=== PATIENT | male | born 1955 | race Caucasian/White ===

== ENCOUNTER 2018-03-15 11:06 | Inpatient (IN) | payer MEDICARE ==
[2018-03-15] MEDS ORDERED: SODIUM CHLORIDE 0.9% 1,000 ML IV STA (11:38)
[2018-03-15 12:26] LABS: Appearance,Urine Clear (Clear); Basophils % (A) 0 %; Bilirubin,Urine Negative (Negative); Blood,Urine Negative (Negative); Color,Urine Light Yellow; Eosinophils # (A) 0.3 k/uL (0-0.7); Eosinophils % (A) 4 %; Glucose,Urine (UA) Negative (Negative); HCT 35.9 % (39.0-53.0); HGB 11.6 gm/dL (13.0-17.5); Ketones,Urine Negative (Negative); Leukocyte Esterase,Urine Negative (Negative); Lymphocytes # (A) 1.1 k/uL (1.0-4.8); Lymphocytes % (A) 14 %; MCH 29.3 pg (25.0-35.0); MCHC 32.4 g/dL (31.0-37.0); MCV 90.5 fL (80.0-100.0); Mean Platelet Volume 6.3; Monocytes # (A) 0.3 k/uL (0-1.0); Monocytes % (A) 3 %; Neutrophils # (A) 6.2 k/uL (1.3-7.7); Neutrophils % (A) 78 %; Nitrite,Urine Negative (Negative); PH, Urine 5.5 (5.0-8.0); Platelet Count 234 k/uL (150-450); Protein,Urine Negative (Negative); RBC 3.97 m/uL (4.30-5.90); RDW 15.2 % (11.5-15.5); Specific Gravity,Urine 1.003 (1.001-1.035); Urobilinogen,Urine <2.0 mg/dL (<2.0); WBC 7.9 k/uL (3.8-10.6)
[2018-03-15 12:35] LABS: ALT 26 U/L (21-72); AST 29 U/L (17-59); Albumin 3.7 g/dL (3.5-5.0); Alcohol <10 mg/dL; Alkaline Phosphatase 102 U/L (38-126); Anion Gap 9 mmol/L; Blood Urea Nitrogen 17 mg/dL (9-20); Calcium 9.3 mg/dL (8.4-10.2); Carbon Dioxide 24 mmol/L (22-30); Chloride 110 mmol/L (98-107); Glucose 75 mg/dL (74-99); Magnesium 2.1 mg/dL (1.6-2.3); Potassium 4.5 mmol/L (3.5-5.1); Sodium 143 mmol/L (137-145); Total Bilirubin 0.4 mg/dL (0.2-1.3); Total Protein 6.3 g/dL (6.3-8.2)
[2018-03-15 12:38] LABS: Prothrombin Time 10.1 sec (9.0-12.0)
--- NOTE | 2018-03-15 12:39 | ED ---
Psych HPI - General Chief Complaint: Psychiatric Symptoms Stated Complaint: EPS eval Time Seen by Provider: 03/15/18 11:10 Source: patient, EMS, RN notes reviewed Mode of arrival: ambulatory Limitations: no limitations - History of Present Illness Initial Comments: This a 62-year-old male brought to emergency department by daughter for multiple complaints. Patient was recently picked up from a home in [place] in which she had very poor care, there is multiple drug abusers recently. Patient has extensive history of CVA, psychiatric disorders, drug abuse, recent hernia surgery with infection. Patient does complain that he has pain joints his right ankle, left hand, abdomen. There is some drainage noted and rash associated with his hernia surgery. Patient also has open wound to his right lower extremity. Patient denies any chest pain or shortness breath no current headache. Patient states he has twitching which may be related to drug use. Patient also has limited range of motion of his left leg and arm secondary to prior CVA. Patient daughter states that he was found to be doctor shopping prior, taking multiple prescription and illicit drugs been abusing these. - Related Data Home Medications Medication Instructions Recorded Confirmed Atorvastatin [Lipitor] 10 mg PO DAILY 03/15/18 03/15/18 Clopidogrel [Plavix] 75 mg PO DAILY 03/15/18 03/15/18 FLUoxetine HCL [PROzac] 80 mg PO DAILY 03/15/18 03/15/18 Gabapentin 600 mg PO QID 03/15/18 03/15/18 Lisinopril [Zestril] 10 mg PO DAILY 03/15/18 03/15/18 QUEtiapine [SEROquel] 50 mg PO QAM 03/15/18 03/15/18 QUEtiapine [SEROquel] 200 mg PO HS 03/15/18 03/15/18 Sulindac [Clinoril] 200 mg PO BID 03/15/18 03/15/18 Tiotropium 18 Mcg/Puff [Spiriva] 1 cap INHALATION RT-DAILY 03/15/18 03/15/18 amLODIPine [Norvasc] 10 mg PO DAILY 03/15/18 03/15/18 tiZANidine [Zanaflex] 6 mg PO Q8H PRN 03/15/18 03/15/18 Allergies Allergy/AdvReac Type Severity Reaction Status Date / Time tramadol AdvReac Severe Abdominal Verified 03/15/18 12:55 Pain codeine AdvReac Itching Verified 03/15/18 12:55 Review of Systems ROS Statement: Those systems with pertinent positive or pertinent negative responses have been documented in the HPI. ROS Other: All systems not noted in ROS Statement are negative. Past Medical History Past Medical History: CVA/TIA, Hypertension History of Any Multi-Drug Resistant Organisms: None Reported Past Surgical History: Hernia Repair Past Psychological History: Bipolar, Depression, Schizophrenia Smoking Status: Current every day smoker Past Drug Use History: Methamphetamine, Opiates, Prescription Drug Abuse General Exam Limitations: no limitations General appearance: alert, in no apparent distress Head exam: Present: atraumatic, normocephalic, normal inspection Eye exam: Present: normal appearance, PERRL, EOMI. Absent: scleral icterus, conjunctival injection, periorbital swelling ENT exam: Present: mucous membranes moist. Absent: normal oropharynx ( edentulous) Neck exam: Present: normal inspection, full ROM. Absent: tenderness, meningismus, lymphadenopathy Respiratory exam: Present: normal lung sounds bilaterally. Absent: respiratory distress, wheezes, rales, rhonchi, stridor Cardiovascular Exam: Present: regular rate, normal rhythm, normal heart sounds. Absent: systolic murmur, diastolic murmur, rubs, gallop, clicks GI/Abdominal exam: Present: soft, tenderness, normal bowel sounds, other (Some purulent Drainage noted in umbilicus, erythematous rash on his abdomen consistent with contact dermatitis). Absent: distended, guarding, rebound, rigid Extremities exam: Present: other (There is an open wound the lateral aspect of the right lower leg right ankle region, tenderness palpation neurovascular intact, and decreased range of motion left arm and left leg) Back exam: Absent: CVA tenderness (R), CVA tenderness (L) Neurological exam: Present: alert, oriented X3, CN II-XII intact, reflexes normal. Absent: motor sensory deficit Skin exam: Present: warm, dry, intact, normal color. Absent: rash Course Vital Signs 03/15/18 11:12 Temperature 97.5 F L Pulse Rate 64 Respiratory 16 Rate Blood Pressure 142/66 O2 Sat by Pulse 99 Oximetry Medical Decision Making - Medical Decision Making 8-year-old male presented for multiple issues. Patient has not been taking care of himself. Patient has open wounds to his right leg and umbilicus region. Patient has urinary retention leading to hydronephrosis. Patient have Escobar catheter placed over 1 L of urine in Escobar bag. Patient has chronic pain issues. Patient also has Schizophrenic and bipolar disorder issues at this time. Patient will be admitted medically for wound care, urology, placement and having consult to psychiatric services - Lab Data Result diagrams: 03/15/18 12:00 03/15/18 12:00 Lab Results 03/15/18 03/15/18 03/15/18 Range/Units 12:00 12:00 12:00 WBC 7.9 (3.8-10.6) k/uL RBC 3.97 L (4.30-5.90) m/uL Hgb 11.6 L (13.0-17.5) gm/dL Hct 35.9 L (39.0-53.0) % MCV 90.5 (80.0-100.0) fL MCH 29.3 (25.0-35.0) pg MCHC 32.4 (31.0-37.0) g/dL RDW 15.2 (11.5-15.5) % Plt Count 234 (150-450) k/uL Neutrophils % 78 % Lymphocytes % 14 % Monocytes % 3 % Eosinophils % 4 % Basophils % 0 % Neutrophils # 6.2 (1.3-7.7) k/uL Lymphocytes # 1.1 (1.0-4.8) k/uL Monocytes # 0.3 (0-1.0) k/uL Eosinophils # 0.3 (0-0.7) k/uL Basophils # 0.0 (0-0.2) k/uL PT (9.0-12.0) sec INR (<1.2) APTT (22.0-30.0) sec Sodium 143 (137-145) mmol/L Potassium 4.5 (3.5-5.1) mmol/L Chloride 110 H (98-107) mmol/L Carbon Dioxide 24 (22-30) mmol/L Anion Gap 9 mmol/L BUN 17 (9-20) mg/dL Creatinine 0.69 (0.66-1.25) mg/dL Est GFR (CKD-EPI)AfAm >90 (>60 ml/min/1.73 sqM) Est GFR (CKD-EPI)NonAf >90 (>60 ml/min/1.73 sqM) Glucose 75 (74-99) mg/dL Plasma Lactic Acid Demetris (0.7-2.0) mmol/L Calcium 9.3 (8.4-10.2) mg/dL Magnesium 2.1 (1.6-2.3) mg/dL Total Bilirubin 0.4 (0.2-1.3) mg/dL AST 29 (17-59) U/L ALT 26 (21-72) U/L Alkaline Phosphatase 102 (38-126) U/L Total Creatine Kinase 136 (55-170) U/L CK-MB (CK-2) 3.4 H (0.0-2.4) ng/mL CK-MB (CK-2) Rel Index 2.5 Troponin I <0.012 (0.000-0.034) ng/mL Total Protein 6.3 (6.3-8.2) g/dL Albumin 3.7 (3.5-5.0) g/dL TSH 0.984 (0.465-4.680) mIU/L Urine Color Urine Appearance (Clear) Urine pH (5.0-8.0) Ur Specific [place] (1.001-1.035) Urine Protein (Negative) Urine Glucose (UA) (Negative) Urine Ketones (Negative) Urine Blood (Negative) Urine Nitrite (Negative) Urine Bilirubin (Negative) Urine Urobilinogen (<2.0) mg/dL Ur Leukocyte Esterase (Negative) Urine Opiates Screen (NotDetected) Ur Oxycodone Screen (NotDetected) Urine Methadone Screen (NotDetected) Ur Propoxyphene Screen (NotDetected) Ur Barbiturates Screen (NotDetected) U Tricyclic Antidepress (NotDetected) Ur Phencyclidine Scrn (NotDetected) Ur Amphetamines Screen (NotDetected) U Methamphetamines Scrn (NotDetected) U Benzodiazepines Scrn (NotDetected) Urine Cocaine Screen (NotDetected) U Marijuana (THC) Screen (NotDetected) Serum Alcohol <10 mg/dL 03/15/18 03/15/18 03/15/18 Range/Units 12:00 12:00 12:00 WBC (3.8-10.6) k/uL RBC (4.30-5.90) m/uL Hgb (13.0-17.5) gm/dL Hct (39.0-53.0) % MCV (80.0-100.0) fL MCH (25.0-35.0) pg MCHC (31.0-37.0) g/dL RDW (11.5-15.5) % Plt Count (150-450) k/uL Neutrophils % % Lymphocytes % % Monocytes % % Eosinophils % % Basophils % % Neutrophils # (1.3-7.7) k/uL Lymphocytes # (1.0-4.8) k/uL Monocytes # (0-1.0) k/uL Eosinophils # (0-0.7) k/uL Basophils # (0-0.2) k/uL PT 10.1 (9.0-12.0) sec INR 1.0 (<1.2) APTT 23.0 (22.0-30.0) sec Sodium (137-145) mmol/L Potassium (3.5-5.1) mmol/L Chloride (98-107) mmol/L Carbon Dioxide (22-30) mmol/L Anion Gap mmol/L BUN (9-20) mg/dL Creatinine (0.66-1.25) mg/dL Est GFR (CKD-EPI)AfAm (>60 ml/min/1.73 sqM) Est GFR (CKD-EPI)NonAf (>60 ml/min/1.73 sqM) Glucose (74-99) mg/dL Plasma Lactic Acid Demetris 1.2 (0.7-2.0) mmol/L Calcium (8.4-10.2) mg/dL Magnesium (1.6-2.3) mg/dL Total Bilirubin (0.2-1.3) mg/dL AST (17-59) U/L ALT (21-72) U/L Alkaline Phosphatase (38-126) U/L Total Creatine Kinase (55-170) U/L CK-MB (CK-2) (0.0-2.4) ng/mL CK-MB (CK-2) Rel Index Troponin I (0.000-0.034) ng/mL Total Protein (6.3-8.2) g/dL Albumin (3.5-5.0) g/dL TSH (0.465-4.680) mIU/L Urine Color Light Yellow Urine Appearance Clear (Clear) Urine pH 5.5 (5.0-8.0) Ur Specific [place] 1.003 (1.001-1.035) Urine Protein Negative (Negative) Urine Glucose (UA) Negative (Negative) Urine Ketones Negative (Negative) Urine Blood Negative (Negative) Urine Nitrite Negative (Negative) Urine Bilirubin Negative (Negative) Urine Urobilinogen <2.0 (<2.0) mg/dL Ur Leukocyte Esterase Negative (Negative) Urine Opiates Screen Not Detected (NotDetected) Ur Oxycodone Screen Not Detected (NotDetected) Urine Methadone Screen Not Detected (NotDetected) Ur Propoxyphene Screen Not Detected (NotDetected) Ur Barbiturates Screen Not Detected (NotDetected) U Tricyclic Antidepress Detected H (NotDetected) Ur Phencyclidine Scrn Not Detected (NotDetected) Ur Amphetamines Screen Not Detected (NotDetected) U Methamphetamines Scrn Not Detected (NotDetected) U Benzodiazepines Scrn Not Detected (NotDetected) Urine Cocaine Screen Not Detected (NotDetected) U Marijuana (THC) Screen Not Detected (NotDetected) Serum Alcohol mg/dL Disposition Clinical Impression: Urinary retention, Bilateral hydronephrosis, Wound of right lower extremity, Navel cellulitis, Schizophrenia, Failure to thrive Disposition: ADMITTED IP TO THIS [facility] Condition: Fair Referrals: Nonstaff,Physician [Primary Care Provider] - 1-2 days
[2018-03-15 12:44] LABS: Creatine Kinase 136 U/L (55-170)
[2018-03-15 12:53] LABS: Amphetamine Screen,Urine Not Detected (NotDetected); Barbiturate Screen,Urine Not Detected (NotDetected); Benzodiazepines Screen,Urine Not Detected (NotDetected); Cocaine Screen,Urine Not Detected (NotDetected); Methadone Screen, Urine Not Detected (NotDetected); Opiate Screen,Urine Not Detected (NotDetected); Oxycodone Screen, Urine Not Detected (NotDetected); Phencyclidine Screen,Urine Not Detected (NotDetected); Tricyclic Antidepressant,Urine Detected (NotDetected); Urn Cannabinoid Scrn Not Detected (NotDetected)
[2018-03-15 12:56] LABS: Creatine Kinase MB 3.4 ng/mL (0.0-2.4); Troponin I <0.012 ng/mL (0.000-0.034)
--- NOTE | 2018-03-15 13:06 | CT ---
EXAMINATION TYPE: CT abdomen pelvis w con DATE OF EXAM: 03/15/2018 REFERENCE: NONE HISTORY: Pain HISTORY: Pain REFERENCE: NONE CT DLP: 497.3 mGy Automated exposure control for dose reduction was used. TECHNIQUE: Helical acquisition through the abdomen and pelvis was obtained following the oral ingesti on of without Oral Contrast and following intravenous administration of 100 mL of Isovue 300. The brittni a was reformatted in axial, coronal and sagittal projections. FINDINGS: Visualized portions of the lungs are clear. There is no pleural or pericardial fluid. The heart is not enlarged. Within the abdomen, the liver, spleen and gallbladder are normal. Both adrenal glands are normal. There is fullness to both renal pelves. Both ureters are mildly dilated. There is bladder wall thicke john. This may account for this. The pancreas is poorly visualized. There is an IVC filter in place. There is generalized anasarca. There is been a previous bowel resection. The large and small bowel are unremarkable considering the absence of oral contrast. There is no free fluid and no free air identified. There is degenerative disc disease, facet arthropathy and hypertrophic spondylosis within the spine. IMPRESSION: 1. MILD HYDRONEPHROSIS PRESENT BILATERALLY WITH THICKENING OF THE BLADDER WALL. 2. GENERALIZED ANASARCA. 3. POSTSURGICAL CHANGE. 4. DEGENERATIVE CHANGES WITHIN THE SPINE.
--- NOTE | 2018-03-15 13:21 | XR ---
EXAMINATION TYPE: XR ankle complete RT , 3 VIEWS DATE OF EXAM ORDERED: 03/15/2018 HISTORY: Pain. COMPARISON: None. FINDINGS: There has been previous sideplate and screw fixation of the distal fibula. There is eviden ce of old trauma to the tibia. There is loss of the tibiotalar joint space. No definite acute fractur e or dislocation is seen. IMPRESSION: 1. NO ACUTE OSSEOUS INJURY. 2. EVIDENCE OF OLD TRAUMA. 3. FAIRLY MARKED DEGENERATIVE CHANGE.
--- NOTE | 2018-03-15 13:23 | XR ---
EXAMINATION TYPE: XR hand complete LT , 2 VIEWS DATE OF EXAM ORDERED: 03/15/2018 HISTORY: Pain. COMPARISON: None. FINDINGS: Metallic density projects over the proximal phalanx of the left fifth digit. The fingers are flexed in all projections. This makes assessment of the digits difficult. There is ossific density adjacent to the medial aspect of the base of the proximal phalanx of the 15. This is likely old but we difficult to exclude an acute injury. No other fracture or dislocation is seen. IMPRESSION: 1. MARKEDLY LIMITED STUDY. 2. OSSIFIC DENSITY ADJACENT TO THE MEDIAL BASE OF THE PROXIMAL PHALANX OF THE LEFT FIFTH DIGIT IS LIK SALLY CHRONIC. PLEASE CORRELATE CLINICALLY.
--- NOTE | 2018-03-15 13:25 | XR ---
EXAMINATION TYPE: XR chest 2V DATE OF EXAM: 03/15/2018 HISTORY: Weakness. REFERENCE: NONE. FINDINGS: The lungs are overinflated but clear. Pleural space are clear. Heart size is normal. There are healed rib fractures present on the left. No acute rib fracture is seen. No pneumothorax is ident ified. IMPRESSION: 1. COPD. 2. EVIDENCE OF OLD LEFT-SIDED RIB FRACTURES.
[2018-03-15] MEDS ORDERED: IBUPROFEN 400 MG TAB PO PRN (14:29)
[2018-03-15] MEDS ORDERED: HYDROcodone/APAP 5-325MG 1 EACH TAB PO PRN (14:29)
[2018-03-15] MEDS ORDERED: ONDANSETRON 4 MG/2 ML VIAL IVP PRN (14:29)
[2018-03-15] MEDS ORDERED: ceFAZolin 1,000 MG in DEXTROSE/WATER 1 50ML.BAG IVPB STA (14:33)
[2018-03-15 16:44] VITALS: BMI 19.0
--- NOTE | 2018-03-15 17:41 | P.HPIM ---
History of Present Illness 62-year-old gentleman was brought in by that daughter recently from [place] as he was not being taken care of well there patient appears to have advanced schizophrenia patient has right of ideas when I valid the patient unable to get much of the history because of that patient apparently had has redness in the medical area he does have redness with local is of temperature patient was started on ceftezole and which will be continued. Patient was also having urinary retention because of which willPatient was thought to have seizures because of his twitching although history is not consistent with seizure patient is awake and that was converse in with the daughter. Patient although his affect having extensive twitching probably acceptable side effects from antipsychotic medications including the Seroquel. These medications will be held until the psychiatric evaluation patient to psychiatric was consulted. We' ll also obtain hepatitis panel will be started on DVT prophylaxis and GI prophylaxis patient ideally need to be admitted to psychiatric floor. He denied any other significant medical complaints Review of Systems REVIEW OF SYSTEMS: CONSTITUTIONAL: No fever, no malaise, no fatigue. HEENT: No recent visual problems or hearing problems. Denied any sore throat. CARDIOVASCULAR: No chest pain, orthopnea, PND, no palpitations, no syncope. PULMONARY: No shortness of breath, no cough, no hemoptysis. GASTROINTESTINAL: No diarrhea, no nausea, no vomiting, no abdominal pain. Normoactive bowel sounds. NEUROLOGICAL: No headaches, no weakness, no numbness. HEMATOLOGICAL: Denies any bleeding or petechiae. GENITOURINARY: Denies any burning micturition, frequency, or urgency. MUSCULOSKELETAL/RHEUMATOLOGICAL: Denies any joint pain, swelling, or any muscle pain. ENDOCRINE: Denies any polyuria or polydipsia. The rest of the 14-point review of systems is negative. Past Medical History Past Medical History: CVA/TIA, Deep Vein Thrombosis (DVT), Hypertension Additional Past Medical History / Comment(s): family states patient has history of 'seizures' thinks patient had one at home. chronic dvt with filter. Left sided weakness/paralysis from previous cva History of Any Multi-Drug Resistant Organisms: None Reported Past Surgical History: Bowel Resection, Hernia Repair Additional Past Surgical History / Comment(s): colostomy with reversal, carol filter left groin, right ankle surgery, Past Anesthesia/Blood Transfusion Reactions: No Reported Reaction Past Psychological History: Bipolar, Depression, PTSD, Schizophrenia Additional Psychological History / Comment(s): pt states he has currently been taking his medications. resided at a jail. Smoking Status: Current every day smoker Past Drug Use History: Marijuana, Methamphetamine, Opiates, Prescription Drug Abuse - Past Family History Brother(s) History Unknown: Yes Additional Family Medical History / Comment(s): alcoholic, one passed from a heart attack. Medications and Allergies Home Medications Medication Instructions Recorded Confirmed Type Atorvastatin [Lipitor] 10 mg PO DAILY 03/15/18 03/15/18 History Clopidogrel [Plavix] 75 mg PO DAILY 03/15/18 03/15/18 History FLUoxetine HCL [PROzac] 80 mg PO DAILY 03/15/18 03/15/18 History Gabapentin 600 mg PO QID 03/15/18 03/15/18 History Lisinopril [Zestril] 10 mg PO DAILY 03/15/18 03/15/18 History QUEtiapine [SEROquel] 50 mg PO QAM 03/15/18 03/15/18 History QUEtiapine [SEROquel] 200 mg PO HS 03/15/18 03/15/18 History Sulindac [Clinoril] 200 mg PO BID 03/15/18 03/15/18 History Tiotropium 18 Mcg/Puff [Spiriva] 1 cap INHALATION RT-DAILY 03/15/18 03/15/18 History amLODIPine [Norvasc] 10 mg PO DAILY 03/15/18 03/15/18 History tiZANidine [Zanaflex] 6 mg PO Q8H PRN 03/15/18 03/15/18 History Allergies Allergy/AdvReac Type Severity Reaction Status Date / Time tramadol AdvReac Severe Abdominal Verified 03/15/18 12:55 Pain codeine AdvReac Itching Verified 03/15/18 12:55 Physical Exam Vitals: Vital Signs Temp Pulse Pulse Resp BP BP Pulse Ox 03/15/18 16:28 97.8 F 62 136/89 98 03/15/18 15:31 72 16 126/78 98 03/15/18 13:00 69 16 136/71 99 03/15/18 11:12 97.5 F L 64 16 142/66 99 Intake and Output 03/15/18 03/15/18 03/15/18 06:59 14:59 22:59 Output Total 1100 Balance -1100 Output: Urine 1100 Uretheral (Escobar) 1100 Other: Weight 63.503 kg 63.503 kg PHYSICAL EXAMINATION: GENERAL: The patient is alert and oriented x3, not in any acute distress. Patient does have flight of ideas, tangentiality probably from his schizophrenia does have generalized body twitching probably a side effect of antipsychotic medications HEENT: Pupils are round and equally reacting to light. EOMI. No scleral icterus. No conjunctival pallor. Normocephalic, atraumatic. No pharyngeal erythema. No thyromegaly. CARDIOVASCULAR: S1 and S2 present. No murmurs, rubs, or gallops. PULMONARY: Chest is clear to auscultation, no wheezing or crackles. ABDOMEN: Soft, nontender, nondistended, normoactive bowel sounds. No palpable organomegaly. MUSCULOSKELETAL: No joint swelling or deformity. EXTREMITIES: No cyanosis, clubbing, or pedal edema. NEUROLOGICAL: Gross neurological examination did not reveal any focal deficits. SKIN: No rashes. Results CBC & Chem 7: 03/15/18 12:00 03/15/18 12:00 Labs: Abnormal Lab Results - Last 24 Hours (Table) 03/15/18 03/15/18 03/15/18 Range/Units 12:00 12:00 12:00 RBC 3.97 L (4.30-5.90) m/uL Hgb 11.6 L (13.0-17.5) gm/dL Hct 35.9 L (39.0-53.0) % Chloride 110 H (98-107) mmol/L CK-MB (CK-2) 3.4 H (0.0-2.4) ng/mL U Tricyclic Antidepress (NotDetected) 03/15/18 Range/Units 12:00 RBC (4.30-5.90) m/uL Hgb (13.0-17.5) gm/dL Hct (39.0-53.0) % Chloride (98-107) mmol/L CK-MB (CK-2) (0.0-2.4) ng/mL U Tricyclic Antidepress Detected H (NotDetected) Thrombosis Risk Factor Assmnt - Choose All That Apply Any of the Below Risk Factors Present?: Yes Other Risk Factors: Yes Each Risk Factor Represents 2 Points: Age 61-74 years Each Risk Factor Represents 3 Points: History of DVT/PE Thrombosis Risk Factor Assessment Total Risk Factor Score: 5 Thrombosis Risk Factor Assessment Level: High Risk Assessment and Plan Plan: -Cellulitis of the abdomen around the umblical area: Cefazolin will be continued. -Schizophrenia with active flight of ideas: Psychiatric was consulted -Urinary retention for which patient has a Escobar catheter will start him on Flomax -Twitching: Possibly extrapleural side effect from his antipsychotic medications which will be held and patient will be given Cogentin which can make his urinary retention worse -Hypertension: Resumed on home medication monitor blood pressure -History of DVT not on any anticoagulation presently patient will be started on DVT prophylaxis -IV drug use will obtain hepatitis panel
[2018-03-15] MEDS ORDERED: BENZTROPINE MESYLATE 1 MG TAB PO SCH (18:00)
[2018-03-15] MEDS: TAMSULOSIN 0.4 MG CAP.ER.24H PO SCH (18:15)
[2018-03-15] MEDS: GABAPENTIN 300 MG CAP PO SCH (19:51)
[2018-03-15] MEDS: FAMOTIDINE 20 MG TAB PO SCH (19:52)
[2018-03-15] MEDS: HEPARIN SODIUM,PORCINE 5,000 UNIT/ML 1 ML VIAL SQ SCH (19:52)
[2018-03-15] MEDS ORDERED: QUEtiapine 100 MG TAB PO SCH (21:00)
[2018-03-15] MEDS ORDERED: BUTALB/APAP/CAFF 50-325-40MG TAB PO PRN (21:01)
[2018-03-15] MEDS: ACETAMINOPHEN TAB 325 MG TAB PO PRN (21:07)
[2018-03-15 23:32] LABS: Hepatitis A Antibody IgM Non-Reactive (Non-Reactive); Hepatitis B Core IgM Non-Reactive (Non-Reactive)
[2018-03-15] MEDS: ceFAZolin 1,000 MG in DEXTROSE/WATER 1 50ML.BAG IVPB SCH (23:51)
[2018-03-16] MEDS: ceFAZolin 1,000 MG in DEXTROSE/WATER 1 50ML.BAG IVPB SCH ×2 (08:24→15:27)
[2018-03-16] MEDS: GABAPENTIN 300 MG CAP PO SCH ×3 (08:25→20:31)
[2018-03-16] MEDS: FAMOTIDINE 20 MG TAB PO SCH ×2 (08:25→20:31)
[2018-03-16] MEDS: HEPARIN SODIUM,PORCINE 5,000 UNIT/ML 1 ML VIAL SQ SCH ×2 (08:26→20:31)
[2018-03-16] MEDS: CLOPIDOGREL 75 MG TAB PO SCH (08:26)
[2018-03-16] MEDS: LISINOPRIL 10 MG TAB PO SCH (08:26)
[2018-03-16] MEDS: ATORVASTATIN 10 MG TAB PO SCH (08:26)
[2018-03-16] MEDS: TAMSULOSIN 0.4 MG CAP.ER.24H PO SCH (08:26)
[2018-03-16] MEDS: IPRATROPIUM 0.5 MG/2.5 ML NEBU INHALATION SCH ×4 (08:39→20:37)
--- NOTE | 2018-03-16 14:40 | P.PN ---
Subjective Patient is admitted for abdominal wall cellulitis around the umbilicus area, patient is was also having twitching secondary Abdominal side effects from antipsychotic medications which are being held and the will obtain psychiatry opinion regarding this patient was given a dose of Cogentin his twitching significantly improved except for side effects significantly improved.. She is still exhibiting psychotic features. Daughter is concerned about her right foot infection in the right ankle area which is bit red and painful for the patient x-ray did not show any significant abnormality patient had surgery in that foot with hardware placement and inflammation in that area doesn't appear to be cellulitic, will will get orthopedic surgery opinion but patient is already on vancomycin at this time. Objective - Vital Signs Vital signs: Vital Signs Temp 96.7 F L 03/16/18 05:58 Pulse 68 03/16/18 08:51 Resp 16 03/16/18 08:00 BP 132/83 03/16/18 05:58 Pulse Ox 98 03/16/18 08:39 Intake & Output 03/15/18 03/16/18 03/16/18 18:59 06:59 18:59 Intake Total 1049 Output Total 1100 2500 2200 Balance -1100 -1451 -2200 Weight 63.503 kg Intake: Intake, IV Titration 1049 Amount Sodium Chloride 0.9% 1, 999 000 ml @ 999 mls/hr IV . Q1H1M [facility] Rx#:[id number] ceFAZolin 1,000 mg In 50 Dextrose/Water 1 50ml.bag @ 100 mls/hr IVPB Q8HR [facility] Rx#:[id number] Output: Urine 1100 2500 2200 Uretheral (Escobar) 1100 1000 Other: Voiding Method Indwelling Catheter Indwelling Catheter Indwelling Catheter - Exam PHYSICAL EXAMINATION: GENERAL: The patient is alert and oriented x3, not in any acute distress. Patient does have flight of ideas, tangentiality probably from his schizophrenia does have generalized body twitching probably a side effect of antipsychotic medications HEENT: Pupils are round and equally reacting to light. EOMI. No scleral icterus. No conjunctival pallor. Normocephalic, atraumatic. No pharyngeal erythema. No thyromegaly. CARDIOVASCULAR: S1 and S2 present. No murmurs, rubs, or gallops. PULMONARY: Chest is clear to auscultation, no wheezing or crackles. ABDOMEN: Redness around the umbilcal area MUSCULOSKELETAL: No joint swelling or deformity. EXTREMITIES: No cyanosis, clubbing, or pedal edema. Right ankle is bit red but not cellulitic NEUROLOGICAL: Gross neurological examination did not reveal any focal deficits. SKIN: No rashes. - Labs CBC & Chem 7: 03/15/18 12:00 03/15/18 12:00 Assessment and Plan Plan: -Cellulitis of the abdomen around the umblical area: Cefazolin will be continued. -Schizophrenia with active flight of ideas: Psychiatric was consulted -Urinary retention Escobar catheter will be removed, will monitor if patient can urinate with bladder scan and as needed straight catheterization -Twitching: Possibly extrapyramidal side effect from his antipsychotic medications which will be held and patient will be given Cogentin which can make his urinary retention worse -Hypertension: Resumed on home medication monitor blood pressure -History of DVT not on any anticoagulation presently patient will be started on DVT prophylaxis -Ruled out hepatitis acute, patient doesn't use any drugs in IV form as per the family
--- NOTE | 2018-03-16 16:57 | P.CN ---
Psychiatric Consult - . Consult date: 03/16/18 Consult:: 03/16/18 16:48 IDENTIFYING DATA: 62-year-old male patient HPI: Is admitted to the [facility] medical floor with cellulitis of the umbilical area and urinary retention. Per chart history patient just moved to [place]. He states that he was having an episode in the breakdown in and did hit his head. Says he didn't realize he was having a seizure. He makes reference to having been on Seroquel for years but has been back on it now and it does make a difference. He reports that Seroquel has been good at treating his auditory hallucinations. He says he is most recently been on 50 mg in the a.m. and 100 mg at bedtime. Per chart history there is some concern of the patient having had some twitches/abnormal movements, patient states that this was related to Neurontin. PAST PSYCHIATRIC HISTORY: He has a history of a few inpatient psychiatric admissions. Most recently has been on the Seroquel 50 mg in the morning and 900 mg at bedtime and Prozac 80 mg daily. The Prozac has been effective for him as well as the Seroquel. He also gives a history of OCD. He has been diagnosed with schizophrenia as well as schizoaffective disorder. He relays that in the past she was on Haldol and fell. He had sexual side effects of Zoloft. Never had any suicide attempts. He's never had an issue of side effects with Seroquel and it is helped his auditory hallucinations. He was also on Thorazine in the past. PMH: CVA/TIA, DVT, hypertension, seizures ALLERGIES: Tramadol, codeine MEDICATIONS: Tylenol when necessary, Fioricet when necessary, Lipitor, Cefazolin , Plavix, Pepcid, Neurontin, heparin, Motrin when necessary, Atrovent, Zestril, Zofran when necessary, Flomax, Zanaflex when necessary CHEMICAL DEPENDENCY HISTORY: Patient states that he used to drink heavily in the past. He says he's been a few months without alcohol. FAMILY PSYCHIATRIC HISTORY: None known at this time. FAMILY CHEMICAL DEPENDENCY HISTORY: None known at this time. SOCIAL HISTORY: He just recently moved here to [place], living with his daughter. He states that his daughter will be his power of finance attorney. He is looking at assisted living settings. He has been 3 times. He has 5 children. MENTAL STATUS EXAM: He is alert and cooperative with the interview. His speech is fluent, not rapid or pressured. Thought processes organized. His mood is described as "well." He denies any current auditory hallucinations he denies any thoughts of harm to self or others. His thought processes are organized. I do not notice any abnormal involuntary movements. Cognitively appears to be grossly intact. IMPRESSIONS: Schizoaffective disorder, depressive type versus bipolar type; history of alcohol use disorder PLAN: he'll be reinitiated on Prozac which history of benefit at 40 mg daily. We will also reinitiated Seroquel 50 mg in a.m. and 100 mg at bedtime with history of benefit in treating his auditory hallucinations. I do not note any abnormal involuntary movements at this time and patient denies historically any side effects with the Seroquel. We will provide with outpatient mental health referral sheet. I do not see any criteria for inpatient psychiatric hospitalization at this time.
[2018-03-16] MEDS: FLUoxetine HCL 20 MG CAP PO SCH (17:32)
[2018-03-16] MEDS: QUEtiapine 100 MG TAB PO SCH (20:32)
[2018-03-16] MEDS: NICOTINE 21MG/24HR PATCH TRANSDERM SCH (20:32)
[2018-03-16] MEDS: ETODOLAC 400 MG TAB PO SCH (20:32)
[2018-03-17] MEDS: ceFAZolin 1,000 MG in DEXTROSE/WATER 1 50ML.BAG IVPB SCH ×3 (00:06→17:00)
[2018-03-17] MEDS: IPRATROPIUM 0.5 MG/2.5 ML NEBU INHALATION SCH ×4 (07:36→19:53)
[2018-03-17] MEDS: FAMOTIDINE 20 MG TAB PO SCH ×2 (09:32→23:05)
[2018-03-17] MEDS: TAMSULOSIN 0.4 MG CAP.ER.24H PO SCH (09:32)
[2018-03-17] MEDS: LISINOPRIL 10 MG TAB PO SCH (09:32)
[2018-03-17] MEDS: CLOPIDOGREL 75 MG TAB PO SCH (09:32)
[2018-03-17] MEDS: HEPARIN SODIUM,PORCINE 5,000 UNIT/ML 1 ML VIAL SQ SCH ×2 (09:32→23:05)
[2018-03-17] MEDS: ATORVASTATIN 10 MG TAB PO SCH (09:32)
[2018-03-17] MEDS: GABAPENTIN 300 MG CAP PO SCH ×3 (09:32→23:07)
[2018-03-17] MEDS: ACETAMINOPHEN TAB 325 MG TAB PO PRN (09:36)
[2018-03-17] MEDS: ETODOLAC 400 MG TAB PO SCH ×3 (10:15→23:06)
[2018-03-17] MEDS: FLUoxetine HCL 20 MG CAP PO SCH (10:16)
[2018-03-17] MEDS: QUEtiapine 50 MG TAB PO SCH (10:16)
--- NOTE | 2018-03-17 15:17 | P.CNOR ---
History of Present Illness - [facility] Consult date: 03/17/18 Consult reason: joint pain History of present illness: Patient is a 62-year-old male who was admitted to [facility] with multiple medical issues. He is being followed by both internal medicine and psychology. After being admitted, patient noted pain involving the right ankle. Heart PT was consult. Patient was evaluated today at bedside, heand throughout most of the ankle, more on the medial aspect. Patient is a history of an ORIF involving the right lateral malleolus and medial malleolus. The surgery was done he states in 2012 , it was done in [place]. Patient having hardware removal along the medial malleolus due to infection. The ankle is bothered him for many years. He notes no acute trauma, including falls. He denies any new onset pain involving the left lower extremity, bilateral upper extremities. Review of Systems Constitutional: Reports as per [facility] Past Medical History Past Medical History: CVA/TIA, Deep Vein Thrombosis (DVT), Hypertension Additional Past Medical History / Comment(s): family states patient has history of 'seizures' thinks patient had one at home. chronic dvt with filter. Left sided weakness/paralysis from previous cva History of Any Multi-Drug Resistant Organisms: None Reported Past Surgical History: Bowel Resection, Hernia Repair Additional Past Surgical History / Comment(s): colostomy with reversal, carol filter left groin, right ankle surgery, Past Anesthesia/Blood Transfusion Reactions: No Reported Reaction Past Psychological History: Bipolar, Depression, PTSD, Schizophrenia Additional Psychological History / Comment(s): pt states he has currently been taking his medications. resided at a halfway. Smoking Status: Current every day smoker Past Drug Use History: Marijuana, Methamphetamine, Opiates, Prescription Drug Abuse - Past Family History Brother(s) History Unknown: Yes Additional Family Medical History / Comment(s): alcoholic, one passed from a heart attack. Medications and Allergies Home Medications Medication Instructions Recorded Confirmed Type Atorvastatin [Lipitor] 10 mg PO DAILY 03/15/18 03/15/18 History Clopidogrel [Plavix] 75 mg PO DAILY 03/15/18 03/15/18 History FLUoxetine HCL [PROzac] 80 mg PO DAILY 03/15/18 03/15/18 History Gabapentin 600 mg PO QID 03/15/18 03/15/18 History Lisinopril [Zestril] 10 mg PO DAILY 03/15/18 03/15/18 History QUEtiapine [SEROquel] 50 mg PO QAM 03/15/18 03/15/18 History QUEtiapine [SEROquel] 200 mg PO HS 03/15/18 03/15/18 History Sulindac [Clinoril] 200 mg PO BID 03/15/18 03/15/18 History Tiotropium 18 Mcg/Puff [Spiriva] 1 cap INHALATION RT-DAILY 03/15/18 03/15/18 History amLODIPine [Norvasc] 10 mg PO DAILY 03/15/18 03/15/18 History tiZANidine [Zanaflex] 6 mg PO Q8H PRN 03/15/18 03/15/18 History Allergies Allergy/AdvReac Type Severity Reaction Status Date / Time tramadol AdvReac Severe Abdominal Verified 03/15/18 12:55 Pain codeine AdvReac Itching Verified 03/15/18 12:55 Physical Examination Right lower extremity: Surgical scars on the both medial and lateral aspect of the ankle are well- healed. No obvious open lesions or sores present. No areas of erythema or soft tissue swelling. Patient's range of motion is intact in both extension and flexion, eversion and inversion. Patient is tender with palpation over the tibiotalar joint anteriorly. Plantar flexion, dorsiflexion, EHL, FHL are intact. Sensory exam to light touch throughout the extremities intact. Dorsal pedis pulses 2+. Results - Labs Labs: H & H 03/15/18 Range/Units 12:00 Hgb 11.6 L (13.0-17.5) gm/dL Hct 35.9 L (39.0-53.0) % Coagulation 03/15/18 Range/Units 12:00 INR 1.0 (<1.2) Result Diagrams: 03/15/18 12:00 03/15/18 12:00 - Diagnostic results Ankle/Foot x-ray: report reviewed, image reviewed Assessment and Plan Plan: Imaging: Multiple views of the right ankle were obtained. Images demonstrate previous plate and screw fixation of lateral malleolus, this remains intact. There is severe tibiotalar arthritis noted with joint space narrowing and osteophyte formation Assessment: 1. Right ankle tibiotalar arthritis 2. History of multiple right ankle surgeries, stable hardware and lateral malleolus 3. Multiple medical comorbidities Plan: I was able to review the case, including the physical exam findings and imaging studies my attending Dr. Meredith. No orthopedic surgical intervention needed at this time. Hardware along the lateral malleolus of the right ankle remains intact. Patient has severe arthritis involving the tibiotalar joint on the right ankle. Would recommend follow-up with foot and ankle specialists for further evaluation. Weight-bear as tolerated Anti-inflammatory medication as needed for pain Ice and elevate as needed Time with Patient: Less than 30
--- NOTE | 2018-03-17 17:46 | P.PN ---
Subjective Progress Note Date: 03/17/18 Progress note being dictated for Dr. Benson. Interval history:Patient is admitted for abdominal wall cellulitis around the umbilicus area, patient is was also having twitching secondary Abdominal side effects from antipsychotic medications which are being held and the will obtain psychiatry opinion regarding this patient was given a dose of Cogentin his twitching significantly improved except for side effects significantly improved.. She is still exhibiting psychotic features. Daughter is concerned about her right foot infection in the right ankle area which is bit red and painful for the patient x-ray did not show any significant abnormality patient had surgery in that foot with hardware placement and inflammation in that area doesn't appear to be cellulitic, will will get orthopedic surgery opinion but patient is already on vancomycin at this time. 03/17/2018 sitting up in chair, no acute distress. Maintained on IV antibiotics. Afebrile. Evaluated by orthopedics with recommendations noted including no surgical intervention at this time. Evaluated by psychiatry, no mental health unit admission required, med adjustments noted. No hallucinations reported,no abnormal involuntary movements noted. Escobar catheter removed, minimal post void residuals, Voiding well without difficulty. Evaluated by physical therapy, subacute rehab recommended at discharge. Objective - Vital Signs Vital signs: Vital Signs Temp 98.0 F 03/17/18 13:48 Pulse 67 03/17/18 16:52 Resp 16 03/17/18 15:28 BP 111/65 03/17/18 13:48 Pulse Ox 97 03/17/18 13:48 Intake & Output 03/16/18 03/17/18 03/17/18 18:59 06:59 18:59 Intake Total 1350 900 Output Total 2800 1600 2900 Balance -2800 -250 -2000 Weight 63.503 kg Intake: Oral 1350 900 Output: Urine 2800 1600 2900 Uretheral (Escobar) 1000 Other: Voiding Method Urinal Urinal Urinal # Voids 1 1 # Bowel Movements 1 1 - Exam GENERAL: The patient is sitting up in a chair, alert and oriented x3, not in any acute distress. No twitching. HEENT: Pupils are round and equally reacting to light. EOMI. No scleral icterus. No conjunctival pallor. Normocephalic, atraumatic. CARDIOVASCULAR: S1 and S2 present. No murmurs, rubs, or gallops. PULMONARY: Chest is clear to auscultation, no wheezing or crackles. ABDOMEN: Redness around the umbilcal area MUSCULOSKELETAL: No joint swelling or deformity. EXTREMITIES: No cyanosis, clubbing, or pedal edema. Right ankle is bit red but not cellulitic NEUROLOGICAL: Gross neurological examination did not reveal any focal deficits. SKIN: No rashes. - Labs CBC & Chem 7: 03/15/18 12:00 03/15/18 12:00 Assessment and Plan Assessment: -Cellulitis of the abdomen around the umblical area -Schizophrenia depressive type versus bipolar type -History of alcohol abuse -Urinary retention status post Escobar catheter -Twitching: Possibly extrapyramidal side effect from his antipsychotic medications; meds/doses adjusted as per psychiatry -Hypertension -History of DVT not on any anticoagulation, currently on DVT prophylaxis -Ruled out hepatitis acute, patient doesn't use any drugs in IV form as per the family; serology nonreactive. Plan: Continue current medication regime ,monitoring and symptomatic treatment. Maintain on antibiotics. Prozac, decreased Seroquel dose added to med regime as per psychiatry. Social work obtaining public legal guardian. Discharge planning in progress for subacute rehab. The impression and plan of care has been dictated as directed. : I performed a history and examination of this patient, discussed the same with the dictator. I agree with the dictator's note ,documented as a scribe. Any additional findings or plans will be noted.
[2018-03-17] MEDS: QUEtiapine 100 MG TAB PO SCH (23:06)
[2018-03-17] MEDS: NICOTINE 21MG/24HR PATCH TRANSDERM SCH (23:11)
[2018-03-18] MEDS: ceFAZolin 1,000 MG in DEXTROSE/WATER 1 50ML.BAG IVPB SCH ×4 (00:25→23:40)
[2018-03-18] MEDS: IPRATROPIUM 0.5 MG/2.5 ML NEBU INHALATION SCH ×4 (07:25→20:52)
[2018-03-18] MEDS: FLUoxetine HCL 20 MG CAP PO SCH (08:59)
[2018-03-18] MEDS: GABAPENTIN 300 MG CAP PO SCH ×3 (08:59→21:49)
[2018-03-18] MEDS: HEPARIN SODIUM,PORCINE 5,000 UNIT/ML 1 ML VIAL SQ SCH ×2 (08:59→21:51)
[2018-03-18] MEDS: ETODOLAC 400 MG TAB PO SCH ×3 (08:59→21:49)
[2018-03-18] MEDS: CLOPIDOGREL 75 MG TAB PO SCH (09:00)
[2018-03-18] MEDS: TAMSULOSIN 0.4 MG CAP.ER.24H PO SCH (09:00)
[2018-03-18] MEDS: FAMOTIDINE 20 MG TAB PO SCH ×2 (09:00→21:51)
[2018-03-18] MEDS: QUEtiapine 50 MG TAB PO SCH (09:00)
[2018-03-18] MEDS: LISINOPRIL 10 MG TAB PO SCH (09:01)
[2018-03-18] MEDS: ATORVASTATIN 10 MG TAB PO SCH (09:01)
--- NOTE | 2018-03-18 11:39 | P.DS ---
Providers Date of admission: 03/15/18 14:50 Expected date of discharge: 03/18/18 Attending physician: Wayne Benson Consults: 03/15/18 14:31 Consult Physician Stat Consulting Provider: Nasim Langley Consult Reason/Comments: Schizophrenia Do you want consulting provider notified?: Yes 03/16/18 13:43 Consult Physician Routine Consulting Provider: Jimi Meredith Consult Reason/Comments: right ankle pain/history of surgery Do you want consulting provider notified?: Yes Primary care physician: Physician Nonstaff Hospital Course: Final Diagnoses: -Cellulitis of the abdomen around the umblical area -Schizophrenia depressive type versus bipolar type -History of alcohol abuse -Urinary retention status post Escobar catheter -Twitching: Possibly extrapyramidal side effect from his antipsychotic medications; meds/doses adjusted as per psychiatry -Hypertension -History of DVT not on any anticoagulation, currently on DVT prophylaxis -Ruled out hepatitis acute, patient doesn't use any drugs in IV form as per the family; serology nonreactive. Hospital course:Interval history:Patient is admitted for abdominal wall cellulitis around the umbilicus area, patient is was also having twitching secondary Abdominal side effects from antipsychotic medications which are being held and the will obtain psychiatry opinion regarding this patient was given a dose of Cogentin his twitching significantly improved except for side effects significantly improved.. She is still exhibiting psychotic features. Daughter is concerned about her right foot infection in the right ankle area which is bit red and painful for the patient x-ray did not show any significant abnormality patient had surgery in that foot with hardware placement and inflammation in that area doesn't appear to be cellulitic, will will get orthopedic surgery opinion but patient is already on vancomycin at this time. 03/17/2018 sitting up in chair, no acute distress. Maintained on IV antibiotics. Afebrile. Evaluated by orthopedics with recommendations noted including no surgical intervention at this time. Evaluated by psychiatry, no mental health unit admission required, med adjustments noted. No hallucinations reported,no abnormal involuntary movements noted. Escobar catheter removed, minimal post void residuals, Voiding well without difficulty. Evaluated by physical therapy, subacute rehab recommended at discharge. Significant clinical improvement on IV antibiotics. Cleared by orthopedics and psychiatry for discharge . Meds further adjusted as per psychiatry .Daughter petitioning for legal guardianship. Patient is being discharged to subacute rehab in a stable condition with guarded prognosis. - Exam GENERAL: The patient is sitting up in a chair, alert and oriented x3, not in any acute distress. No twitching. CARDIOVASCULAR: S1 and S2 present. No murmurs, rubs, or gallops. PULMONARY: Chest is clear to auscultation, no wheezing or crackles. ABDOMEN: Improving Redness around the umbilcal area EXTREMITIES: No cyanosis, clubbing, or pedal edema. Right ankle is bit red but not cellulitic NEUROLOGICAL: Gross neurological examination did not reveal any focal deficits. The impression and plan of care has been dictated as directed. : I performed a history and examination of this patient, discussed the same with the dictator. I agree with the dictator's note ,documented as a scribe. Any additional findings or plans will be noted. Time taken: 35 minutes Patient Condition at Discharge: Stable Plan - Discharge Summary Discharge Rx Participant: Yes New Discharge Prescriptions: New Cephalexin [Keflex] 500 mg PO Q8HR #15 cap Sulfamethox-Tmp 800-160Mg [Bactrim DS 800-160 mg] 1 tab PO Q12HR #10 tab Acetaminophen Tab [Tylenol] 650 mg PO Q6HR PRN tab PRN Reason: Fever And/ Or Pain Etodolac [Lodine] 400 mg PO TID tab Famotidine [Pepcid] 20 mg PO BID tab FLUoxetine HCL [PROzac] 40 mg PO DAILY cap Ipratropium Nebulized [Atrovent Nebulized] 0.5 mg INHALATION RT-QID nebu Nicotine 21Mg/24Hr Patch [Habitrol] 1 patch TRANSDERM HS patch QUEtiapine [SEROquel] 50 mg PO DAILY tab QUEtiapine [SEROquel] 100 mg PO HS tab Tamsulosin [Flomax] 0.4 mg PO PC-BRKFST cap.er.24h tiZANidine [Zanaflex] 6 mg PO TID PRN tab PRN Reason: Muscle Spasm Continue tiZANidine [Zanaflex] 6 mg PO Q8H PRN PRN Reason: Muscle Spasm Lisinopril [Zestril] 10 mg PO DAILY Clopidogrel [Plavix] 75 mg PO DAILY Atorvastatin [Lipitor] 10 mg PO DAILY Gabapentin 600 mg PO QID Discontinued Tiotropium 18 Mcg/Puff [Spiriva] 1 cap INHALATION RT-DAILY Sulindac [Clinoril] 200 mg PO BID QUEtiapine [SEROquel] 200 mg PO HS QUEtiapine [SEROquel] 50 mg PO QAM FLUoxetine HCL [PROzac] 80 mg PO DAILY amLODIPine [Norvasc] 10 mg PO DAILY Discharge Medication List Atorvastatin [Lipitor] 10 mg PO DAILY 03/15/18 [History] Clopidogrel [Plavix] 75 mg PO DAILY 03/15/18 [History] Gabapentin 600 mg PO QID 03/15/18 [History] Lisinopril [Zestril] 10 mg PO DAILY 03/15/18 [History] tiZANidine [Zanaflex] 6 mg PO Q8H PRN 03/15/18 [History] Acetaminophen Tab [Tylenol] 650 mg PO Q6HR PRN tab 03/18/18 [Rx] Cephalexin [Keflex] 500 mg PO Q8HR #15 cap 03/18/18 [Rx] Etodolac [Lodine] 400 mg PO TID tab 03/18/18 [Rx] FLUoxetine HCL [PROzac] 40 mg PO DAILY cap 03/18/18 [Rx] Famotidine [Pepcid] 20 mg PO BID tab 03/18/18 [Rx] Ipratropium Nebulized [Atrovent Nebulized] 0.5 mg INHALATION RT-QID nebu [Rx] Nicotine 21Mg/24Hr Patch [Habitrol] 1 patch TRANSDERM HS patch 03/18/18 [Rx] QUEtiapine [SEROquel] 50 mg PO DAILY tab 03/18/18 [Rx] QUEtiapine [SEROquel] 100 mg PO HS tab 03/18/18 [Rx] Sulfamethox-Tmp 800-160Mg [Bactrim DS 800-160 mg] 1 tab PO Q12HR #10 tab [Rx] Tamsulosin [Flomax] 0.4 mg PO PC-BRKFST cap.er.24h 03/18/18 [Rx] tiZANidine [Zanaflex] 6 mg PO TID PRN tab 03/18/18 [Rx] Follow up Appointment(s)/Referral(s): Nonstaff,Physician [Primary Care Provider] - 3 Days (PCP at subacute rehab) Activity/Diet/Wound Care/Special Instructions: ECF pending follow-up with [facility] cbc,bmp in 3 days Discharge Disposition: TRANSFER TO SNF/ECF
[2018-03-18] MEDS: ACETAMINOPHEN TAB 325 MG TAB PO PRN (19:24)
[2018-03-18] MEDS: QUEtiapine 100 MG TAB PO SCH (21:49)
[2018-03-18] MEDS: NICOTINE 21MG/24HR PATCH TRANSDERM SCH (21:50)
[2018-03-19] MEDS: ACETAMINOPHEN TAB 325 MG TAB PO PRN (05:17)
[2018-03-19] MEDS ORDERED: ARTIFICIAL TEARS-HYPROMELLOSE DROPS 15 ML BTL BOTH EYES PRN (05:32)
[2018-03-19] MEDS: IPRATROPIUM 0.5 MG/2.5 ML NEBU INHALATION SCH ×2 (06:51→11:05)
[2018-03-19] MEDS: ceFAZolin 1,000 MG in DEXTROSE/WATER 1 50ML.BAG IVPB SCH (08:53)
[2018-03-19] MEDS: TAMSULOSIN 0.4 MG CAP.ER.24H PO SCH (08:53)
[2018-03-19] MEDS: FAMOTIDINE 20 MG TAB PO SCH (08:54)
[2018-03-19] MEDS: ETODOLAC 400 MG TAB PO SCH (08:54)
[2018-03-19] MEDS: ATORVASTATIN 10 MG TAB PO SCH (08:54)
[2018-03-19] MEDS: CLOPIDOGREL 75 MG TAB PO SCH (08:54)
[2018-03-19] MEDS: GABAPENTIN 300 MG CAP PO SCH (08:55)
[2018-03-19] MEDS: HEPARIN SODIUM,PORCINE 5,000 UNIT/ML 1 ML VIAL SQ SCH (08:55)
[2018-03-19] MEDS: LISINOPRIL 10 MG TAB PO SCH (08:55)
[2018-03-19] MEDS: FLUoxetine HCL 20 MG CAP PO SCH (08:55)
[2018-03-19] MEDS: QUEtiapine 50 MG TAB PO SCH (08:56)
[2018-03-19 15:54] VITALS: BP 144/71; PULSE 103; RESP 16; TEMP 97.6
== END 2018-03-19 15:22 | DRG 603 ==
LOC: EC 11:06 → 4MS4W 14:50
PROVIDERS: ADMIT Hospitalist; ATTEND Hospitalist
DX: L03.311 Cellulitis of abdominal wall (principal); I69.354 Hemiplegia and hemiparesis following cerebral infarction affecting left non-dominant side; N13.30 Unspecified hydronephrosis; L03.316 Cellulitis of umbilicus; F17.200 Nicotine dependence, unspecified, uncomplicated; F20.9 Schizophrenia, unspecified; F31.9 Bipolar disorder, unspecified; F43.10 Post-traumatic stress disorder, unspecified; G89.29 Other chronic pain; I10 Essential (primary) hypertension; M19.079 Primary osteoarthritis, unspecified ankle and foot; R62.7 Adult failure to thrive; Z79.02 Long term (current) use of antithrombotics/antiplatelets; Z79.899 Other long term (current) drug therapy; Z82.49 Family history of ischemic heart disease and other diseases of the circulatory system; Z86.718 Personal history of other venous thrombosis and embolism; R25.3 Fasciculation; T43.505A Adverse effect of unspecified antipsychotics and neuroleptics, initial encounter
CPT/HCPCS: 36415; 51702; 51798; 71046; 74177; 80053; 80074; 80306; 80320; 81003; 82550; 82553; 83605; 83735; 84443; 84484; 85025; 85610; 85730; 94640; 94760; 96360; 99285

== ENCOUNTER → 2018-06-18 | Outpatient (CLI) | payer MEDICARE, OTHER ==
--- NOTE | 2018-06-18 21:57 | CT ---
EXAMINATION TYPE: CT abdomen pelvis wo/w con DATE OF EXAM: 06/18/2018 COMPARISON: CT abdomen and pelvis March 15, 2018 HISTORY: Abdominal pain. History of multiple hernia repairs. CT DLP: 1638 mGycm, Automated Exposure Control for Dose Reduction was Utilized. CONTRAST: CT scan of the abdomen and pelvis is performed with oral and without and with IV Contrast, patient in jected with 100 mL of Isovue 300. FINDINGS: LUNG BASES: Patchy right greater than left bibasilar linear scarring and/or atelectasis is redemonstr ated. LIVER/GB: No significant abnormality is appreciated. PANCREAS: No significant abnormality is seen. SPLEEN: No significant abnormality is seen. ADRENALS: No significant abnormality is seen. KIDNEYS: No renal calculi are evident on noncontrast images. There is symmetric cortical medullary u ptake and excretion without right-sided hydronephrosis. There is a subcentimeter simple appearing cys t lower pole of the right kidney seen best series 5 image 36. There are more subcentimeter low-densit y lesions scattered the left kidney too small to further characterize but presumably benign. There is prominence of the left renal pelvis without calyceal dilatation and mild left-sided hydroureter rede monstrated. BOWEL: Oral contrast reaches level of terminal ileum. There is no suspicious small or large bowel dil atation. Sutures at the level sigmoid colon are redemonstrated. PROSTATE/SEMINAL VESICLES: No gross abnormality seen. LYMPH NODES: No greater than 1cm abdominal or pelvic lymph nodes are appreciated. OSSEOUS STRUCTURES: There is moderate to severe disc space narrowing with endplate sclerosis and mode rate spurring as well as vacuum disc phenomenon L4-L5 level. There is moderate multilevel spurring in the lower thoracic spine with mild to moderate height loss inferior T11 endplate is noted. Multileve l facet arthropathy lower lumbar spine is present. OTHER: Juxtarenal IVC filter is stable. There is moderate calcified plaque of the infrarenal abdomina l aorta extending into branch vessels. There is interval improvement in diffuse soft tissue anasarca. There is persistent vertical scar in t he midline of the abdomen was slightly more thickened scar noted at level of umbilicus. There is incr easing dystrophic calcification in the deep tissue axial image 41 noted. No recurrent ventral wall he rnia is present. No suspicious focal fluid collection is seen. IMPRESSION: Extensive postsurgical change to anterior abdominal wall without recurrent ventral wall h ernia.
== END | disposition home or self-care (01) ==
LOC: RADCTMAIN 12:16 → EEVIPCON 13:40
PROVIDERS: ATTEND Family Medicine
DX: R10.9 Unspecified abdominal pain (principal); Z98.890 Other specified postprocedural states
CPT/HCPCS: 74178; Q9967

== ENCOUNTER 2018-09-17 08:00 | Day surgery (SDC) | payer MEDICARE, OTHER ==
[2018-09-15 08:23] VITALS: BMI 29.0
[2018-09-17] MEDS: LACTATED RINGERS 1,000 ML IV SCH ×3 (07:18→21:55)
[~2018-09-17 08:00] MED LIST: ALBUTEROL INHALER 60 PUFF/8 GM INHALER INHALATION ONE; DEXAMETHASONE SOD PHOSPHATE 10 MG/ML 1 ML VIAL IV ONE; LIDOCAINE 1% 20 ML VIAL (10MG/ML) FOR IV START INTRADERMA PRN; LIDOCAINE 1% INJ 10MG/ML (20 ML MDV) ONE; MIDAZOLAM 2 MG/2 ML VIAL ONE; ONDANSETRON 4 MG/2 ML VIAL IVP ONE; PROPOFOL 10 MG/ML 20 ML VIAL IV ONE; SCOPOLAMINE 1.5MG/72HR PATCH TRANSDERM ONE; ceFAZolin IN SWFI 2 GM/20 ML SYRINGE IVP ONE; fentaNYL (PF) 50 MCG/ML 2 ML AMP IV PRN; fentaNYL (PF) 50 MCG/ML 2 ML AMP ONE
[2018-09-17] MEDS ORDERED: LACTATED RINGERS 1,000 ML IV ONE (09:20)
--- NOTE | 2018-09-17 09:51 | XR ---
EXAMINATION TYPE: XR ankle limited RT DATE OF EXAM: 09/17/2018 COMPARISON: NONE TECHNIQUE: Two views submitted HISTORY: Post op FINDINGS: There is no evidence of a metallic hardware. Patient presents for fluoroscopy for metal hardware jimena aryan.. IMPRESSION: 1. Postoperative change.
--- NOTE | 2018-09-17 09:52 | FL ---
EXAMINATION TYPE: FL guidance operating room DATE OF EXAM: 09/17/2018 HISTORY: Flouroscopy time 2 seconds of fluoroscopy provided. IMPRESSION: 1. Fluoroscopy time.
[2018-09-17] MEDS ORDERED: hydrALAZINE HCL 20 MG/ML 1 ML VIAL IVP ONE (10:15)
[2018-09-17] MEDS ORDERED: hydrOXYzine PAMOATE 25 MG CAP PO PRN (10:16)
[2018-09-17] MEDS ORDERED: ONDANSETRON 4 MG/2 ML VIAL IVP PRN (10:16)
[2018-09-17] MEDS ORDERED: HYDROmorphone 0.5 MG/0.5 ML SYRINGE IVP PRN (10:16)
[2018-09-17] MEDS ORDERED: SENNOSIDES-DOCUSATE SODIUM 1 EACH TAB PO PRN (10:16)
[2018-09-17] MEDS ORDERED: HYDROcodone/APAP 5-325MG 1 EACH TAB PO PRN (10:16)
--- NOTE | 2018-09-17 10:18 | P.OP ---
Date of Procedure: 09/17/18 Preoperative Diagnosis: 1. History of right ankle open reduction and internal fixation by another physician with a chronic draining wound and likely deep infection over the lateral incision 2. Severe posttraumatic right ankle arthritis 3. Schizophrenia 4. Depression 5. Hypertension Postoperative Diagnosis: Same Procedure(s) Performed: 1. Right ankle deep hardware removal 2. Application of incisional wound VAC, right ankle Anesthesia: GETA Surgeon: Eligio Smiht Transmission Worker #1: Chino Larry Estimated Blood Loss (ml): 10 IV fluids (ml): 750 Pathology: other (Deep cultures) Condition: stable Disposition: PACU Indications for Procedure: The patient is a very pleasant 63-year-old male with a medical history significant for schizophrenia who sustained a right ankle fracture several years ago requiring operative fixation which was performed by another physician at this facility. The patient went on to heal his fractures but developed a chronic draining wound over his lateral incision and posttraumatic arthritis. He presented to see me to discuss treatment for the chronic draining wound over his lateral incision. We discussed that the draining wound likely communicated with the hardware and that to completely eradicate the infection and get the draining wound to heal he would need hardware removal. The patient understands that removing the hardware will do nothing to treat the pain that he has from his underlying and pre-existing posttraumatic ankle arthritis. He also understands that he is unable to have any type of definitive ankle surgery until his wound has completely healed and is free of infection. We discussed the potential risks and complications of surgery including but not limited to risk of anesthesia, superficial infection, deep infection, delayed wound healing, superficial wound necrosis, intraoperative fracture, postoperative fracture, DVT, PE, need for further surgery including amputation, generalized dissatisfaction with surgery, and possibly loss of life or limb. He also has a history of DVT and understands the risk of having a postoperative DVT. He'll be treated in-house with Lovenox and then I will defer to internal medicine for long-term DVT prophylaxis given his history. Operative Findings: There was a draining wound with cloudy yellow fluid over the middle third of the incision that communicated with the plate. There was no gross purulence but there was abundant ominous-looking tissue underneath the plate and around the bone. The fractures had healed and there was no obvious of gross osteomyelitis. Several of the screws in the plate were completely stripped and unable to be removed. A maritza studded saw was used to cut the plate and the screws were then removed. Multiple locking screws were crossed threaded into the plate and stripped. Description of Procedure: The patient was identified in preoperative holding the correct right leg was marked with my initials. I reviewed the consent form with the patient. All of his questions were answered. The patient was then brought back to the operating room. He was transitioned to the OR table where general anesthetic and preoperative antibiotics were administered. The dressing was then taken off his right leg. There is no open draining wound with cloudy yellow fluid over the middle third of the incision. A tourniquet was applied to the proximal aspect of the right leg. A bump was placed under the right buttock internally rotating the leg to neutral. The left leg was secured to the table. All bony prominences were well-padded. The right leg was then prepped and draped in the standard sterile fashion. Prior to starting surgery timeout was performed identifying the correct patient, operative extremity, and procedure. The patient's leg was then elevated, exsanguinated with an Esmarch bandage, and the tourniquet was inflated to 250 mmHg. I began by outlining the scar over the lateral aspect of the distal fibula. An ellipse was made around the draining sinus tract that was 3 times the width and length to allow closure. Skin incision was made with a scalpel. The ellipse over the draining sinus was sharply removed and handed off to the back table. The periosteum and fascia were sharply incised in line with the skin incision down to the level of the plate. The sinus appeared to track down to the plate. There is a small amount of cloudy yellow fluid but no dana purulence. The plate was completely exposed and then swabs were taken and sent for cultures. A small amount of the ominous-looking slime around the plate was debrided and sent for cultures. The majority of the screws were then removed. One of the nonlocking screws proximal to the fracture site was completely stripped. Distally the locking screws were removed. It was noted that multiple of the locking screws were stripped and cross threaded but I was able to remove them. The broken screw set was opened and multiple attempts were made to remove the stripped screw proximally. Ultimately the plate had to be cut with a maritza studded saw through the oblong hole of the stripped screw. Great care was taken to not inadvertently cut or damage the surrounding soft tissue. The plate was cut and easily removed. I was then able to remove the stripped screw with a pliers. Final fluoroscopic images were taken showing removal of all the hardware in no acute fractures. The wound was then thoroughly irrigated with sterile saline. The deep fascial and periosteal layer was closed with a running 0 Vicryl. The deep subcu was reapproximated using 3-0 Monocryl. The skin was closed with 3-0 nylon. No stitches were placed at the site of the draining sinus. The skin margins appeared clean. An incisional wound VAC was placed over the incision. The tourniquet was let down. A soft dressing was applied, the patient was extubated, transferred to a gurney, and brought to PACU tongue procedure well. Chino Larry PAC was required as a skilled bilingual office assistant for patient positioning, exposure, retraction, hardware removal and closure. Plan: The patient is going to be admitted under my care with consultations to internal medicine for perioperative medical management and infectious disease for long-term antibiotic and wound recommendations. An incisional wound VAC was placed and can be removed on postoperative day #2. The patient will be treated with Lovenox while in-house due to his history of DVT but I will defer to internal medicine for long-term anticoagulation. The patient does take Plavix at baseline. The patient is going to remain nonweightbearing in a tall cam boot until his incision is healed. We will consult physical therapy for gait and crutch training
[2018-09-17] MEDS ORDERED: HYDROmorphone 1 MG/ML 1 ML SYRINGE IVP ONE ×3 (10:22→10:45)
[2018-09-17] MEDS: HYDROmorphone 1 MG/ML 1 ML SYRINGE IVP PRN ×5 (11:38→23:58)
[2018-09-17 12:32] LABS: Basophils % (A) 0 %; Eosinophils # (A) 0.1 k/uL (0-0.7); Eosinophils % (A) 1 %; HCT 41.8 % (39.0-53.0); HGB 13.6 gm/dL (13.0-17.5); Lymphocytes # (A) 0.4 k/uL (1.0-4.8); Lymphocytes % (A) 5 %; MCH 29.5 pg (25.0-35.0); MCHC 32.5 g/dL (31.0-37.0); Mean Platelet Volume 7.1; Monocytes # (A) 0.1 k/uL (0-1.0); Monocytes % (A) 1 %; Neutrophils # (A) 8.3 k/uL (1.3-7.7); Neutrophils % (A) 93 %; Platelet Count 189 k/uL (150-450); RBC 4.59 m/uL (4.30-5.90); RDW 14.9 % (11.5-15.5)
[2018-09-17] MEDS ORDERED: DOCUSATE 100 MG CAP PO PRN (13:53)
[2018-09-17] MEDS ORDERED: ACETAMINOPHEN TAB 325 MG TAB PO PRN (13:53)
[2018-09-17] MEDS ORDERED: ALBUTEROL NEBULIZED 2.5 MG/3 ML INHALATION PRN (13:57)
[2018-09-17] MEDS: ATORVASTATIN 10 MG TAB PO SCH (14:38)
[2018-09-17] MEDS: HEPARIN SODIUM,PORCINE 5,000 UNIT/ML 1 ML VIAL SQ SCH ×2 (14:38→23:58)
[2018-09-17] MEDS: ceFAZolin IN SWFI 2 GM/20 ML SYRINGE IVP SCH ×2 (15:00→23:58)
--- NOTE | 2018-09-17 15:31 | P.CONS ---
History of Present Illness - Reason for Consult Consult date: 09/17/18 medical management of comorbidites and anticoagulation recs Requesting physician: Eligio Smith - Chief Complaint removal of infected hardware right ankle - History of Present Illness 63-year-old male with complex medical history of remote stroke resulting in left-sided weakness history of DVT status post IVC filter hypertension, COPD, seizure and schizophrenia. History of alcohol abuse currently is a senior care resident Patient presented to the hospital for scheduled for removal of right leg infected hardware. He reports remote history of fracture in his right leg and back in 2012 he did well initially and then ended up with draining wounds and recurrent infections for the past few years. For which his surgeon recommended removal of the hardware. Surgery requested to follow up the patient for management of his complex medical history. Patient is currently seen postoperative day 0 post removal of the hardware and insertion of wound VAC. Tolerated procedure well denies any headache chest pain trouble breathing fevers nausea or vomiting. Patient reports history of COPD not on home oxygen he uses Spiriva daily basis. He continues to smoke about 6 cigarettes every day. Her reports history of seizures and schizophrenia for which Prozac dose was increased to 8 mg recently, he also takes Depakote for seizures. Which seems to be controlling his symptoms per his report. Patient reports history of stroke and left-sided lower extremity DVT back in early 1999 after abdominal hernia surgery, since then he's been on Plavix due to CAT scan revealing multiple small strokes prior to that that went unnoticed, and he also had an IVC filter inserted for his DVT at that time. He is not chronically on any anticoagulation except for Plavix as an antiplatelet due to his history of stroke. Patient has chronic umbilical draining wound since removal of his mesh from the abdominal wall hernia back in December 2017. He currently denies any nausea vomiting denies any diarrhea or GI bleeding. Patient has nonhealing surgical wound over his suprapubic region just under his umbilicus. No erythema no foul smell no pain For ambulation patient has a wheelchair but he normally ambulates using a cane or a walker. He can support himself as he regained most of his strength in his left side but he is still dealing with coordination issues and left foot drop since the stroke for which she uses assistive device for ambulation. He currently resides at a senior care medical [place] for long-term, fdue to housing issues that he is dealing with right now. Patient also admits to alcohol abuse however he is not currently drinking as he is residing at senior care Review of Systems Pertinent positives as noted in HPI. All other systems were reviewed and are negative Past Medical History Past Medical History: CVA/TIA, Deep Vein Thrombosis (DVT), Hypertension, Seizure Disorder Additional Past Medical History / Comment(s): history of seizures. h/o dvt with filter. Left sided weakness from previous cva, WOUND ON ABD FROM PRIOR HERNIA SURGERY. ALSO HAS WOUND TO RT ANKLE History of Any Multi-Drug Resistant Organisms: None Reported Past Surgical History: Bowel Resection, Hernia Repair Additional Past Surgical History / Comment(s): colostomy with reversal, carol filter left groin, right ankle surgery, Past Anesthesia/Blood Transfusion Reactions: No Reported Reaction Past Psychological History: Bipolar, Depression, PTSD, Schizophrenia Additional Psychological History / Comment(s): . RESIDES IN [facility]. PTS DAUGHTER STATES THAT SHE BROUGHT HIM UP HERE FROM [place] R/T NEGLECT AT CURRENT [facility] Smoking Status: Current every day smoker Past Alcohol Use History: None Reported Additional Past Alcohol Use History / Comment(s): DAUGHTER UNSURE IF STILL SMOKING Past Drug Use History: Marijuana, Methamphetamine, Opiates, Prescription Drug Abuse Additional Drug Use History / Comment(s): PRIOR ETOH AND DRUG ABUSE PRIOR TO MAR 2018 - Past Family History Brother(s) History Unknown: Yes Additional Family Medical History / Comment(s): alcoholic, one passed from a heart attack. Medications and Allergies Home Medications Medication Instructions Recorded Confirmed Type Atorvastatin [Lipitor] 10 mg PO DAILY 03/15/18 09/17/18 History Clopidogrel [Plavix] 75 mg PO DAILY 03/15/18 09/17/18 History Lisinopril [Zestril] 10 mg PO DAILY 03/15/18 09/17/18 History Acetaminophen Tab [Tylenol] 650 mg PO Q6HR PRN tab 03/18/18 09/17/18 Rx FLUoxetine HCL [PROzac] 40 mg PO DAILY cap 03/18/18 09/17/18 Rx Famotidine [Pepcid] 20 mg PO BID tab 03/18/18 09/17/18 Rx Ipratropium Nebulized [Atrovent 0.5 mg INHALATION RT-QID nebu 03/18/18 09/17/18 Rx Nebulized 0.2 MG/ML] Nicotine 21Mg/24Hr Patch [Habitrol] 1 patch TRANSDERM HS patch 03/18/18 09/17/18 Rx QUEtiapine [SEROquel] 50 mg PO DAILY tab 03/18/18 09/17/18 Rx QUEtiapine [SEROquel] 100 mg PO HS tab 03/18/18 09/17/18 Rx Tamsulosin [Flomax] 0.4 mg PO PC-BRKFST cap.er.24h 03/18/18 09/17/18 Rx tiZANidine [Zanaflex] 6 mg PO TID PRN tab 03/18/18 09/17/18 Rx Diclofenac Sodium [Voltaren Gel] 2 gram TOPICAL Q8H PRN 09/15/18 09/17/18 His tory Divalproex [Depakote] 250 mg PO BID 09/15/18 09/17/18 History Docusate [Colace] 100 mg PO DAILY PRN 09/15/18 09/17/18 History Pregabalin [Lyrica] 100 mg PO BID 09/15/18 09/17/18 History Sulfamethox-Tmp 800-160Mg [Bactrim 1 tab PO Q12HR 09/17/18 09/17/18 History DS 800-160 mg] Tiotropium 18 Mcg/Puff [Spiriva] 1 puff INHALATION RT-DAILY 09/17/18 09/17/18 History Allergies Allergy/AdvReac Type Severity Reaction Status Date / Time tramadol AdvReac Severe Abdominal Verified 09/17/18 10:59 Pain codeine AdvReac Itching Verified 09/17/18 10:59 Physical Exam Vitals: Vital Signs Temp Pulse Resp BP BP Pulse Ox 09/17/18 14:15 112 H 170/92 09/17/18 14:00 112 H 171/106 09/17/18 13:45 112 H 172/82 09/17/18 13:30 114 H 162/86 09/17/18 13:15 112 H 195/77 09/17/18 13:00 103 H 182/98 09/17/18 12:45 99 150/84 09/17/18 12:30 91 165/73 09/17/18 12:15 97.8 F 98 12 170/79 09/17/18 10:41 97 14 166/69 94 L 09/17/18 10:30 91 16 178/82 99 09/17/18 10:15 82 16 234/105 97 09/17/18 10:08 97.2 F L 71 14 192/90 96 09/17/18 07:10 97.6 F 58 L 16 156/69 98 Intake and Output 09/16/18 09/17/18 09/17/18 22:59 06:59 14:59 Intake Total 1100 Output Total 20 Balance 1080 Intake: IV 1100 Output: Estimated Blood Loss 20 Other: # Voids 0 Constitutional: No acute distress, conversant, pleasant, looks older than stated age Eyes: Anicteric sclerae, moist conjunctiva, no lid-lag Pupils equal round reactive to light ENMT: NC/AT Oropharynx clear, no erythema, exudates Neck: Supple, FROM, no masses, or JVD No carotid bruits No thyromegaly Lungs: Good breath sounds bilaterally, scattered extra 2 wheezes Clear to percussion Normal respiratory effort, no accessory muscle use Cardiovascular: Heart regular in rate and rhythm, No murmurs, gallops, or rubs No peripheral edema Abdominal: Soft Nontender, no guarding, rebound or rigidity Abdomen moving with respiration Normoactive bowel sounds No hepatomegaly, No splenomegaly No palpable mass Chronic draining wounds below the umbilicus Skin: Chronic draining surgical wound in the suprapubic region just below the umbilicus no induration no erythema no tenderness to palpation Normal temperature, tone, texture, turgor No induration No subcutaneous nodules No rash, lesions Extremities: No digital cyanosis No clubbing Pedal pulses intact over left foot, surgical dressing over the right foot however capillary refill is immediate over right toes. Wound VAC in place Radial pulses intact and symmetrical No calf tenderness , right leg wrapped with surgical dressing Psychiatric: Alert and oriented to person, place and time Appropriate affect fair judgment Neuro Muscles Strength 4-5/5 in all 4 extremities , except for left foot drop Sensation to light touch grossly present throughout Cranial nerves II-XII grossly intact No focal sensory deficits Lymphatics: no palpable cervical or supraclavicular , or inguinal lymph nodes Results CBC & Chem 7: 09/17/18 11:43 Labs: Abnormal Lab Results - Last 24 Hours (Table) 09/17/18 Range/Units 11:43 Neutrophils # 8.3 H (1.3-7.7) k/uL Lymphocytes # 0.4 L (1.0-4.8) k/uL Assessment and Plan Assessment: 63-year-old male with complex past medical history presented for scheduled removal of infected right leg hardware tolerated procedure well patient is seen in postoperative day 0 request of surgery team for management of his complex medical history. Patient medications were reviewed and reordered. DVT prophylaxis with heparin subcu 3 times a day, history of stroke per patient sees scan at that time revealed evidence of multiple ischemic strokes prior. Since then he's been on Plavix will continue that. Follow up on labs in the morning. Plan: Infected hardware in the right leg status post removal by surgery team Management per orthopedic Currently on wound VAC and antibiotics Hypertension currently controlled continue home meds History of stroke with residual left-sided weakness, continue with Plavix History of DVT provoked by surgery, status post IVC filter. Continue with h eparin subcu 3 times a day for DVT prophylaxis History of seizures continue Depakote History of schizophrenia and depression continue with Prozac dose adjusted per patient report Chronic draining wounds, follow-up ID recommendations Tobacco smoking Counseled for more than 3 minutes regarding smoking cessation Nicotine replacement therapy offered COPD currently compensated Continue with ipratropium 4 times a day Albuterol inhaler when necessary for shortness of breath Osteoarthritis, pain control Fall precautions Follow up labs in the morning Patient is full code with his daughter as surrogate decision-maker Thank you for allowing us to participate in the care of this patient. Do not hesitate to contact us with questions. Someone can be reached from the [facility] hospitalist group at all hours of the day at [phone].
[2018-09-17] MEDS: IPRATROPIUM 0.5 MG/2.5 ML NEBU INHALATION SCH ×2 (16:11→19:49)
[2018-09-17] MEDS ORDERED: LISINOPRIL 10 MG TAB PO SCH (19:45)
[2018-09-17] MEDS: NICOTINE 14MG/24HR PATCH TRANSDERM SCH (20:04)
[2018-09-17] MEDS: PREGABALIN 100 MG CAP PO SCH (20:50)
[2018-09-17] MEDS: QUEtiapine 100 MG TAB PO SCH (20:50)
[2018-09-17] MEDS: FAMOTIDINE 20 MG TAB PO SCH (20:50)
[2018-09-17] MEDS: DIVALPROEX 250 MG TABLET.DR PO SCH (20:50)
[2018-09-17] MEDS: HYDROcodone/APAP 5-325MG 1 EACH TAB PO PRN (22:04)
[2018-09-18] MEDS: HYDROcodone/APAP 5-325MG 1 EACH TAB PO PRN ×4 (03:27→22:08)
[2018-09-18] MEDS: LACTATED RINGERS 1,000 ML IV SCH ×3 (03:27→17:11)
[2018-09-18] MEDS: HYDROmorphone 1 MG/ML 1 ML SYRINGE IVP PRN (05:15)
[2018-09-18] MEDS: IPRATROPIUM 0.5 MG/2.5 ML NEBU INHALATION SCH ×4 (07:12→20:09)
[2018-09-18] MEDS: CLOPIDOGREL 75 MG TAB PO SCH (08:44)
[2018-09-18] MEDS: TAMSULOSIN 0.4 MG CAP.ER.24H PO SCH (08:44)
[2018-09-18] MEDS: HEPARIN SODIUM,PORCINE 5,000 UNIT/ML 1 ML VIAL SQ SCH ×3 (08:44→23:30)
[2018-09-18] MEDS: ATORVASTATIN 10 MG TAB PO SCH (08:44)
[2018-09-18] MEDS: FLUoxetine HCL 20 MG CAP PO SCH (08:45)
[2018-09-18] MEDS: DIVALPROEX 250 MG TABLET.DR PO SCH ×2 (08:45→20:46)
[2018-09-18] MEDS: FAMOTIDINE 20 MG TAB PO SCH ×2 (08:45→20:07)
[2018-09-18] MEDS: QUEtiapine 50 MG TAB PO SCH (08:46)
[2018-09-18] MEDS: NICOTINE 14MG/24HR PATCH TRANSDERM SCH (08:46)
[2018-09-18] MEDS: PREGABALIN 100 MG CAP PO SCH ×2 (08:46→20:07)
[2018-09-18] MEDS ORDERED: LISINOPRIL 10 MG TAB PO SCH ×2 (09:00→20:00)
[2018-09-18] MEDS ORDERED: FLUoxetine HCL 20 MG CAP PO SCH (09:00)
[2018-09-18 09:21] VITALS: RESP 16
[2018-09-18 09:30] LABS: HCT 38.9 % (39.0-53.0); HGB 12.9 gm/dL (13.0-17.5); MCH 30.3 pg (25.0-35.0); MCHC 33.2 g/dL (31.0-37.0); MCV 91.5 fL (80.0-100.0); Mean Platelet Volume 6.8; Platelet Count 194 k/uL (150-450); RBC 4.26 m/uL (4.30-5.90); RDW 14.5 % (11.5-15.5); WBC 8.9 k/uL (3.8-10.6)
[2018-09-18 09:38] LABS: ALT 29 U/L (21-72); AST 37 U/L (17-59); Albumin 4.6 g/dL (3.5-5.0); Alkaline Phosphatase 65 U/L (38-126); Anion Gap 11 mmol/L; Blood Urea Nitrogen 15 mg/dL (9-20); Calcium 9.4 mg/dL (8.4-10.2); Carbon Dioxide 27 mmol/L (22-30); Chloride 103 mmol/L (98-107); Glucose 91 mg/dL (74-99); Potassium 4.6 mmol/L (3.5-5.1); Sodium 141 mmol/L (137-145); Total Bilirubin 0.5 mg/dL (0.2-1.3); Total Protein 7.2 g/dL (6.3-8.2)
--- NOTE | 2018-09-18 12:08 | P.PN ---
Subjective Progress Note Date: 09/18/18 This patient is a 63 year old male with a past medical history of schizophrenia, DVT status-post IVC filter currently on Plavix, hypertension, COPD, and seizures that presented to [facility] yesterday for hardware removal of the right ankle. The patient originally sustained an ankle fracture years ago that required operative fixation by another doctor. He was seen by Dr. Smith in the office for post-traumatic arthritis and a chronic wound over the lateral incision. The decision was made to remove the hardware to completely eradicate the infection, therefore allowing the draining wound to heal. The patient underwent a deep hardware removal of the right ankle and application of a wound vac yesterday 09/17/[address] Smith. Today is post-operative day #1. The patient states he is doing very well this morning, he denies significant pain in the ankle. He states he is tolerated his diet well. He states he has been up walking around his room this morning, bearing weight on the right ankle. He states he knows he was instructed to not bear any weight on the right ankle, although he states it doesn't hurt and he is going to walk on it. Patient denies chest pain, shortness of breath, nausea, vom iting. Patient denies any other complaints or concerns today. Vital signs stable. Objective - Vital Signs Vital signs: Vital Signs Temp 98.3 F 09/18/18 01:13 Pulse 82 09/18/18 07:28 Resp 19 09/18/18 01:13 BP 122/55 09/18/18 01:13 Pulse Ox 95 09/18/18 01:35 Intake & Output 09/17/18 09/18/18 09/18/18 18:59 06:59 18:59 Intake Total 1100 800 Output Total 720 1400 Balance 380 -600 Intake: IV 1100 Intake, IV Titration 800 Amount Lactated Ringers 1,000 ml 800 @ 100 mls/hr IV .Q10H [facility] Rx#:[id number] Output: Urine 700 1400 Estimated Blood Loss 20 Other: Voiding Method Urinal # Voids 0 2 - Exam On examination, the patient is sitting on the side of the bed in no apparent distress. He is alert and orientated x3. On inspection of the right lower extremity, there is a wound vac covered with an YESI wrap in place. The YESI wrap is clean, dry, intact. The toes are warm and well-perfused with brisk capillary refill. The patient is able to flex and extend his toes without difficulty. Sensation is intact to light touch of the toes. There is a lower extremity compression cuff present on the left lower extremity. The left calf is soft and non-tender to palpation. - Labs CBC & Chem 7: 09/18/18 08:04 09/18/18 08:04 Labs: Abnormal Lab Results - Last 24 Hours (Table) 09/17/18 Range/Units 11:43 Neutrophils # 8.3 H (1.3-7.7) k/uL Lymphocytes # 0.4 L (1.0-4.8) k/uL Microbiology - Last 24 Hours (Table) 09/17/18 08:46 Gram Stain - Preliminary Ankle - Right Wound Culture - Preliminary 09/17/18 09:29 Gram Stain - Preliminary Ankle - Right Tissue Culture - Preliminary 09/17/18 08:46 Gram Stain - Preliminary Ankle - Right Tissue Culture - Preliminary 09/17/18 09:29 Anaerobic Culture - Preliminary Ankle - Right 09/17/18 08:46 Anaerobic Culture - Preliminary Ankle - Right 09/17/18 08:46 Anaerobic Culture - Preliminary Ankle - Right Assessment and Plan Assessment: History of open reduction and internal fixation, chronic draining incision wound likely due to deep infection s/p right ankle hardware removal. Post operative day #1. Plan: - I stressed the importance of remaining non-weight bearing on the right lower extremity while his wound heals. He is to remain strictly non-weight bearing while wearing the CAM boot. PT/OT for gait and balance training. - 2 doses of post-operative antibiotics complete. ID consulted for further antibiotic recommendations. Intra-operative cultures taken, will continue to follow results. - Will plan on removing wound vac tomorrow, pending ID recommendations. - Continue pain management with [place] and Dilaudid as needed. - Internal medicine consulted for medical management and anti-coagulation recommendations. - Patient lives at [facility] currently, case management consulted for discharge planning. Patient discussed with Dr. Smith.
[2018-09-18] MEDS: HYDROmorphone 0.5 MG/0.5 ML SYRINGE IVP PRN ×3 (15:09→23:31)
--- NOTE | 2018-09-18 15:54 | P.PN ---
Subjective Progress Note Date: 09/18/18 Principal diagnosis: follow up for medical management post removal of infected hardware of his right ankle patient seen and examined , doing well, no new complaints, denies any chest pain or trouble breathing. denies any fevers or chills. He is tolerating PO intake . Objective - Vital Signs Vital signs: Vital Signs Temp 97.3 F L 09/18/18 14:46 Pulse 84 09/18/18 14:46 Resp 16 09/18/18 14:46 BP 160/80 09/18/18 14:46 Pulse Ox 96 09/18/18 14:46 Intake & Output 09/17/18 09/18/18 09/18/18 18:59 06:59 18:59 Intake Total 1100 800 Output Total 720 1400 Balance 380 -600 Intake: IV 1100 Intake, IV Titration 800 Amount Lactated Ringers 1,000 ml 800 @ 100 mls/hr IV .Q10H [facility] Rx#:[id number] Output: Urine 700 1400 Estimated Blood Loss 20 Other: Voiding Method Urinal # Voids 0 2 4 # Bowel Movements 0 - Exam Constitutional: vital signs stable, Not in acute distress, pleasant, conversant Lungs: Clear to auscultation bilaterally, clear to percussion, normal respiratory effort no use of accessory muscles Cardiovascular: Regular rate and rhythm, no murmurs, no gallops, no rubs, no peripheral edema Gastrointestinal: Soft, no tenderness to palpation, no palpable hepatosplenomegally, bowel sounds positive, no abdominal wall hernias Extremities: Surgical dressing over right leg wound VAC in place. Left leg with dropped foot left side, no tenderness to palpation no leg edema. Psych: Alert, oriented to place, person and time, appropriate affect, intact judgment - Labs CBC & Chem 7: 09/18/18 08:04 09/18/18 08:04 Labs: Abnormal Lab Results - Last 24 Hours (Table) 09/18/18 09/18/18 Range/Units 08:04 08:04 RBC 4.26 L (4.30-5.90) m/uL Hgb 12.9 L (13.0-17.5) gm/dL Hct 38.9 L (39.0-53.0) % Creatinine 0.60 L (0.66-1.25) mg/dL Microbiology - Last 24 Hours (Table) 09/17/18 08:46 Gram Stain - Preliminary Ankle - Right Tissue Culture - Preliminary 09/17/18 08:46 Gram Stain - Preliminary Ankle - Right Wound Culture - Preliminary 09/17/18 09:29 Gram Stain - Preliminary Ankle - Right Tissue Culture - Preliminary 09/17/18 09:29 Anaerobic Culture - Preliminary Ankle - Right 09/17/18 08:46 Anaerobic Culture - Preliminary Ankle - Right 09/17/18 08:46 Anaerobic Culture - Preliminary Ankle - Right Assessment and Plan Assessment: 63-year-old male with complex past medical history presented for scheduled removal of infected right leg hardware tolerated procedure well patient is seen in postoperative day 0 request of surgery team for management of his complex medical history. Patient medications were reviewed and reordered. DVT prophy laxis with heparin subcu 3 times a day, history of stroke per patient sees scan at that time revealed evidence of multiple ischemic strokes prior. Since then he's been on Plavix will continue that. Follow up on labs in the morning. 09/18 patient is seen today postoperative day #1. Blood pressure is better controlled today. Tolerated procedure today well. Denies any chest pain or trouble breathing denies any fevers or chills. He is working with PT OT for training on balance while wearing boots Plan: mild post op anemia, as expected supportive care wound vac with minimal drainage follow up hgb Infected hardware in the right leg status post removal by surgery team POD #1 Management per orthopedic Currently on wound VAC and antibiotics Hypertension currently controlled continue home meds History of stroke with residual left-sided weakness, continue with Plavix History of DVT provoked by surgery, status post IVC filter. Continue with heparin subcu 3 times a day for DVT prophylaxis no symptoms suggestive of acute DVT during this admission History of seizures continue Depakote History of schizophrenia and depression continue with Prozac dose adjusted per patient report Chronic draining wounds, follow-up ID recommendations Tobacco smoking Nicotine replacement therapy offered COPD currently compensated Continue with ipratropium 4 times a day, resume spiriva upon discharge Albuterol inhaler when necessary for shortness of breath Osteoarthritis, pain control Fall precautions, PT/OT Follow up labs in the morning
[2018-09-18] MEDS: QUEtiapine 100 MG TAB PO SCH (20:46)
[2018-09-19] MEDS ORDERED: VANCOMYCIN IV PER PHARMACY 1 EACH MISC MISCELLANE PRN (00:11)
--- NOTE | 2018-09-19 00:11 | P.CONS ---
History of Present Illness - Reason for Consult Consult date: 09/18/18 - Chief Complaint Drainage right ankle - History of Present Illness 63-year-old male who has multiple medical troubles that includes arterial disease with a stroke with resultant left-sided weakness, schizophrenia, chronic tobacco use, and history of significant trauma to the right leg. Patient relates that he was standing in line after [place] at the [facility] in [place] to take some merchandise back to the store. He apparently had the sudden collapse of his right leg. He was taken to a local hospital and eventually underwent surgical intervention. The patient relates that last multiple years is no draining sinus tract. He did see the surgeon but apparently never had the hardware removed. He moved to [place] to be closer to his daughter who is his guardian. With the chronic open draining ulceration to the ankle he was evaluated by foot and ankle surgeon, with evidence of a grossly infected hardware was taken to the operating room for removal of the infected hardware. It with this the infectious diseases consultation was requested. Patient also has a history of abdominal hernia repair which apparently had difficulties with mesh which is been removed but continues to have some drainage to the abdominal site. He site fevers chills rigors or sweats. He does have foot drop to the left and wears a special brace and is concerned with the boot to the right after surgery about his ambulation. Review of Systems Patient pleasant but very verbose HEENT:Denies headache or acute visual change. Denies sinus or mouth discomfor ts. Denies neck stiffness or pain. Denies significant oral cavity pain. Denies difficulty on swallowing. Lungs: Denies significant shortness of breath, cough, sputum production, or hemoptysis. Cardiovascular: Denies significant shortness of breath, chest pain, chest wall pain, orthopnea, dyspnea on exertion, syncope Gastrointestinal:Denies nausea, vomiting, diarrhea, constipation, hematemesis, melena, hematochezia. No no significant change of bowel habit noticed. Musculoskeletal: As per the HPI significant ulceration right ankle with bowel surgery Skin: Skin defect abdominal wall at the umbilicus from recent surgery Neuro: Denies headache or visual change. Denies any new onset weakness or difficulty with ambulation. Denies falls or seizures. Psychiatric: History of schizophrenia Endocrine: Denies significant fatigue, denies significant weight loss or weight gain. Past Medical History Past Medical History: CVA/TIA, Deep Vein Thrombosis (DVT), Hypertension, Seizure Disorder Additional Past Medical History / Comment(s): history of seizures. h/o dvt with filter. Left sided weakness from previous cva, WOUND ON ABD FROM PRIOR HERNIA SURGERY. ALSO HAS WOUND TO RT ANKLE History of Any Multi-Drug Resistant Organisms: None Reported Past Surgical History: Bowel Resection, Hernia Repair Additional Past Surgical History / Comment(s): colostomy with reversal, carol filter left groin, right ankle surgery, Past Anesthesia/Blood Transfusion Reactions: No Reported Reaction Past Psychological History: Bipolar, Depression, PTSD, Schizophrenia Additional Psychological History / Comment(s): . RESIDES IN [facility]. PTS DAUGHTER STATES THAT SHE BROUGHT HIM UP HERE FROM [place] R/[facility] he was residing at. Tobacco smoker. History of alcohol abuse. 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 No international travel. Did have a pet dog is not currently Smoking Status: Current every day smoker Past Alcohol Use History: None Reported Additional Past Alcohol Use History / Comment(s): DAUGHTER UNSURE IF STILL SMOKING Past Drug Use History: Marijuana, Methamphetamine, Opiates, Prescription Drug Abuse Additional Drug Use History / Comment(s): PRIOR ETOH AND DRUG ABUSE PRIOR TO MAR 2018 - Past Family History Brother(s) History Unknown: Yes Additional Family Medical History / Comment(s): alcoholic, one passed from a heart attack. Medications and Allergies Home Medications and Allergies Comment(s): Current Medications Acetaminophen (Tylenol Tab) 650 mg PO Q6HR PRN PRN Reason: Fever and/ or Pain Hydrocodone Bitart/Acetaminophen ([place] 5-325) 1 each PO Q6HR PRN PRN Reason: Pain Scale 1 to 5 Hydrocodone Bitart/Acetaminophen ([place] 5-325) 2 each PO Q6HR PRN PRN Reason: Pain Scale 6 to 10 Last Admin: 09/18/18 22:08 Dose: 2 each Documented by: Albuterol Sulfate (Ventolin Nebulized) 2.5 mg INHALATION RT-QID PRN PRN Reason: Shortness Of Breath Or Wheezing Last Admin: 09/18/18 07:12 Dose: 2.5 mg Documented by: Atorvastatin Calcium (Lipitor) 10 mg PO DAILY [facility] Last Admin: 09/18/18 08:44 Dose: 10 mg Documented by: Clopidogrel Bisulfate (Plavix) 75 mg PO DAILY [facility] Last Admin: 09/18/18 08:44 Dose: 75 mg Documented by: Divalproex Sodium (Depakote) 250 mg PO BID [facility] Last Admin: 09/18/18 20:46 Dose: 250 mg Documented by: Docusate Sodium (Colace) 100 mg PO DAILY PRN PRN Reason: Constipation Famotidine (Pepcid) 20 mg PO BID [facility] Last Admin: 09/18/18 20:07 Dose: 20 mg Documented by: Fluoxetine HCl (Prozac) 80 mg PO DAILY [facility] Last Admin: 09/18/18 08:45 Dose: 80 mg Documented by: Heparin Sodium (Porcine) (Heparin) 5,000 unit SQ Q8HR [facility] Last Admin: 09/18/18 23:30 Dose: 5,000 unit Documented by: Hydromorphone HCl (Dilaudid) 1 mg IVP Q3HR PRN PRN Reason: Pain Scale 7 to 10 Last Admin: 09/18/18 05:15 Dose: 1 mg Documented by: Hydromorphone HCl (Dilaudid) 0.25 mg IVP Q3HR PRN PRN Reason: Pain Scale 1 to 3 Last Admin: 09/18/18 10:34 Dose: 0.25 mg Documented by: Hydromorphone HCl (Dilaudid) 0.5 mg IVP Q3HR PRN PRN Reason: Pain Scale 4 to 6 Last Admin: 09/18/18 23:31 Dose: 0.5 mg Documented by: Hydroxyzine Pamoate (Vistaril) 25 mg PO Q6HR PRN PRN Reason: Nausea/Anxiety Lactated Ringer's (Lactated Ringers) 1,000 mls @ 100 mls/hr IV .Q10H [facility] Last Admin: 09/18/18 17:11 Dose: Not Given Documented by: Ipratropium [place] (Atrovent Nebulized) 0.5 mg INHALATION RT-QID [facility] Last Admin: 09/18/18 20:09 Dose: Not Given Documented by: Lidocaine HCl (.Xylocaine 1% Inj (10mg/Ml) For Iv Start) 0.1 ml INTRADERMA PER PROTOCOL PRN PRN Reason: IV Start Last Admin: 09/17/18 07:18 Dose: 0.1 ml Documented by: Lisinopril (Zestril) 10 mg PO DAILY@1999 [facility] Last Admin: 09/18/18 20:07 Dose: 10 mg Documented by: Nicotine (Habitrol 14mg/24hr Patch) 1 patch TRANSDERM DAILY [facility] Last Admin: 09/18/18 08:46 Dose: 1 patch Documented by: Ondansetron HCl (Zofran) 4 mg IVP DAILY PRN PRN Reason: Nausea And Vomiting Last Admin: 09/18/18 20:46 Dose: 4 mg Documented by: Pregabalin (Lyrica) 100 mg PO BID [facility] Last Admin: 09/18/18 20:07 Dose: 100 mg Documented by: Quetiapine Fumarate (Seroquel) 50 mg PO DAILY [facility] Last Admin: 09/18/18 08:46 Dose: 50 mg Documented by: Quetiapine Fumarate (Seroquel) 100 mg PO [facility] Last Admin: 09/18/18 20:46 Dose: 100 mg Documented by: Senna/Docusate Sodium (Senokot-S) 2 each PO HS PRN PRN Reason: Constipation Tamsulosin HCl (Flomax) 0.4 mg PO PC-BRKFST [facility] Last Admin: 09/18/18 08:44 Dose: 0.4 mg Documented by: Tizanidine HCl (Zanaflex) 6 mg PO TID PRN PRN Reason: Muscle Spasm Last Admin: 09/18/18 23:31 Dose: 6 mg Documented by: Home Medications Medication Instructions Recorded Confirmed Type Atorvastatin [Lipitor] 10 mg PO DAILY 03/15/18 09/17/18 History Clopidogrel [Plavix] 75 mg PO DAILY 03/15/18 09/17/18 History Lisinopril [Zestril] 10 mg PO DAILY 03/15/18 09/17/18 History Acetaminophen Tab [Tylenol] 650 mg PO Q6HR PRN tab 03/18/18 09/17/18 Rx FLUoxetine HCL [PROzac] 40 mg PO DAILY cap 03/18/18 09/17/18 Rx Famotidine [Pepcid] 20 mg PO BID tab 03/18/18 09/17/18 Rx Ipratropium Nebulized [Atrovent 0.5 mg INHALATION RT-QID nebu 03/18/18 09/17/18 Rx Nebulized 0.2 MG/ML] Nicotine 21Mg/24Hr Patch [Habitrol] 1 patch TRANSDERM HS patch 03/18/18 Rx QUEtiapine [SEROquel] 50 mg PO DAILY tab 03/18/18 09/17/18 Rx QUEtiapine [SEROquel] 100 mg PO HS tab 03/18/18 09/17/18 Rx Tamsulosin [Flomax] 0.4 mg PO PC-BRKFST cap.er.24h 03/18/18 09/17/18 Rx tiZANidine [Zanaflex] 6 mg PO TID PRN tab 03/18/18 09/17/18 Rx Diclofenac Sodium [Voltaren Gel] 2 gram TOPICAL Q8H PRN 09/15/18 09/17/18 History Divalproex [Depakote] 250 mg PO BID 09/15/18 09/17/18 History Docusate [Colace] 100 mg PO DAILY PRN 09/15/18 09/17/18 History Pregabalin [Lyrica] 100 mg PO BID 09/15/18 09/17/18 History Sulfamethox-Tmp 800-160Mg [Bactrim 1 tab PO Q12HR 09/17/18 09/17/18 History DS 800-160 mg] Tiotropium 18 Mcg/Puff [Spiriva] 1 puff INHALATION RT-DAILY 09/17/18 09/17/18 History Allergies Allergy/AdvReac Type Severity Reaction Status Date / Time tramadol AdvReac Severe Abdominal Verified 09/17/18 10:59 Pain codeine AdvReac Itching Verified 09/17/18 10:59 Physical Exam Vitals: Vital Signs Temp Pulse Pulse Resp BP Pulse Ox 09/18/18 20:03 98.1 F 67 145/79 96 09/18/18 16:14 97.9 F 72 129/75 96 09/18/18 14:46 97.3 F L 84 16 160/80 96 09/18/18 11:16 78 09/18/18 11:06 76 09/18/18 07:28 82 09/18/18 07:12 80 09/18/18 07:00 97.9 F 59 L 16 123/63 98 09/18/18 01:35 86 95 09/18/18 01:13 98.3 F 107 H 19 122/55 90 L Intake and Output 09/18/18 09/18/18 09/19/18 14:59 22:59 06:59 Output Total 1000 Balance -1000 Output: Urine 1000 Other: # Voids 4 2 # Bowel Movements 0 63-year-old male HEENT: Anicteric conjunctiva are pink and moist nasal mucosa grossly intact without significant lesions, there is no thrush. Neck: The neck is supple without significant lymphadenopathy or thyromegaly. Lungs: Good bilateral air entry without significant crackles or wheezing. There is no significant bronchial sounds. There is no egophony or dullness. Heart: Regular rate and rhythm with an audible S1-S2, no S3 no S4. There is no significant murmur click or rub, PMI was nondisplaced. Abdomen: Positive bowel sounds soft and nontender without palpable masses or organomegaly. There was no guarding or rebound. Extremities: The upper extremities have excellent pulses they are symmetric, no significant petechiae or telangiectasia. No splinter hemorrhages were noted. The lower extremities are free from significant edema. The peripheral pulses were 2+ and symmetric. Neuro: Awake alert oriented to person place and time. Left-sided weakness from his stroke with spasticity to the upper extremity less so to the left lower extremity Right ankle has the wound VAC in place from the recent surgical intervention. Abdominal wall is evidence of the surgical intervention with a small area of exposed granulation tissue Results CBC & Chem 7: 09/18/18 08:04 09/18/18 08:04 Labs: Abnormal Lab Results - Last 24 Hours (Table) 09/18/18 09/18/18 Range/Units 08:04 08:04 RBC 4.26 L (4.30-5.90) m/uL Hgb 12.9 L (13.0-17.5) gm/dL Hct 38.9 L (39.0-53.0) % Creatinine 0.60 L (0.66-1.25) mg/dL Microbiology - Last 24 Hours (Table) 09/17/18 08:46 Gram Stain - Preliminary Ankle - Right Tissue Culture - Preliminary 09/17/18 08:46 Gram Stain - Preliminary Ankle - Right Wound Culture - Preliminary 09/17/18 09:29 Gram Stain - Preliminary Ankle - Right Tissue Culture - Preliminary Laboratory Results WBC 8.9 k/uL (3.8-10.6) 09/18/18 08:04 RBC 4.26 m/uL (4.30-5.90) L 09/18/18 08:04 Hgb 12.9 gm/dL (13.0-17.5) L 09/18/18 08:04 Hct 38.9 % (39.0-53.0) L 09/18/18 08:04 MCV 91.5 fL (80.0-100.0) 09/18/18 08:04 MCH 30.3 pg (25.0-35.0) 09/18/18 08:04 MCHC 33.2 g/dL (31.0-37.0) 09/18/18 08:04 RDW 14.5 % (11.5-15.5) 09/18/18 08:04 Plt Count 194 k/uL (150-450) 09/18/18 08:04 Neutrophils % 93 % 09/17/18 11:43 Lymphocytes % 5 % 09/17/18 11:43 Monocytes % 1 % 09/17/18 11:43 Eosinophils % 1 % 09/17/18 11:43 Basophils % 0 % 09/17/18 11:43 Neutrophils # 8.3 k/uL (1.3-7.7) H 09/17/18 11:43 Lymphocytes # 0.4 k/uL (1.0-4.8) L 09/17/18 11:43 Monocytes # 0.1 k/uL (0-1.0) 09/17/18 11:43 Eosinophils # 0.1 k/uL (0-0.7) 09/17/18 11:43 Basophils # 0.0 k/uL (0-0.2) 09/17/18 11:43 Sodium 141 mmol/L (137-145) 09/18/18 08:04 Potassium 4.6 mmol/L (3.5-5.1) 09/18/18 08:04 Chloride 103 mmol/L (98-107) 09/18/18 08:04 Carbon Dioxide 27 mmol/L (22-30) 09/18/18 08:04 Anion Gap 11 mmol/L 09/18/18 08:04 BUN 15 mg/dL (9-20) 09/18/18 08:04 Creatinine 0.60 mg/dL (0.66-1.25) L 09/18/18 08:04 Est GFR (CKD-EPI)AfAm >90 (>60 ml/min/1.73 sqM) 09/18/18 08:04 Est GFR (CKD-EPI)NonAf >90 (>60 ml/min/1.73 sqM) 09/18/18 08:04 Glucose 91 mg/dL (74-99) 09/18/18 08:04 Calcium 9.4 mg/dL (8.4-10.2) 09/18/18 08:04 Total Bilirubin 0.5 mg/dL (0.2-1.3) 09/18/18 08:04 AST 37 U/L (17-59) 09/18/18 08:04 ALT 29 U/L (21-72) 09/18/18 08:04 Alkaline Phosphatase 65 U/L (38-126) 09/18/18 08:04 Total Protein 7.2 g/dL (6.3-8.2) 09/18/18 08:04 Albumin 4.6 g/dL (3.5-5.0) 09/18/18 08:04 Microbiology 09/17/18 08:46 Ankle - Right Gram Stain - Preliminary 09/17/18 08:46 Ankle - Right Tissue Culture - Preliminary 09/17/18 08:46 Ankle - Right Gram Stain - Preliminary 09/17/18 08:46 Ankle - Right Wound Culture - Preliminary 09/17/18 09:29 Ankle - Right Gram Stain - Preliminary 09/17/18 09:29 Ankle - Right Tissue Culture - Preliminary 09/17/18 09:29 Ankle - Right Anaerobic Culture - Preliminary 09/17/18 08:46 Ankle - Right Anaerobic Culture - Preliminary 09/17/18 08:46 Ankle - Right Anaerobic Culture - Preliminary Assessment and Plan (1) Status post hardware removal Current Visit: Yes Status: Acute Code(s): Z98.890 - OTHER SPECIFIED POSTPROCEDURAL STATES SNOMED Code(s): 294849155 (2) Wound of right ankle Narrative/Plan: 63-year-old male who has multiple medical troubles that includes schizophrenia, history of stroke with left-sided weakness and spasticity of the upper extremity presents with a nonhealing ulceration to the right ankle. He's been having a nonhealing sinus track for some time after his repair of his right ankle. Apparently the hardware was was to be removed before he left [place] but never occurred. Upon his arrival here he is now been seen by orthopedics and this hardware specimen removed and bone has been debrided. Cultures are pending. Blood cultures are in process vancomycin therapy will be most prudent while CULTURES are pending. As far as the site currently wound VAC is in place. Once initial wound VAC is removed will then hopefully be able to direct course of wound care for discharge. Patient does have a small umbilicus ulceration for which opticell silver will be applied. May be changed every Saturday. Given that the hardware has been removed, there was evidence of active infection will likely need a 6 week course of antibiotic therapy related to the infected hardware. We'll need IV access. Current Visit: Yes Status: Acute Code(s): S91.001A - UNSPECIFIED OPEN WOUND, RIGHT ANKLE, INITIAL ENCOUNTER SNOMED Code(s): 789561084 (3) Abdominal wall skin ulcer Current Visit: Yes Status: Acute Code(s): L98.499 - NON-PRESSURE CHRONIC ULCER OF SKIN OF SITES W UNSP SEVERITY SNOMED Code(s): 317393247
[2018-09-19] MEDS: VANCOMYCIN 1,500 MG in SODIUM CHLORIDE 0.9% 250 ML IVPB SCH ×2 (02:19→10:19)
[2018-09-19] MEDS: LACTATED RINGERS 1,000 ML IV SCH (02:34)
[2018-09-19] MEDS: IPRATROPIUM 0.5 MG/2.5 ML NEBU INHALATION SCH ×3 (07:02→15:45)
[2018-09-19] MEDS: TAMSULOSIN 0.4 MG CAP.ER.24H PO SCH (08:54)
[2018-09-19] MEDS: ATORVASTATIN 10 MG TAB PO SCH (08:55)
[2018-09-19] MEDS: CLOPIDOGREL 75 MG TAB PO SCH (08:55)
[2018-09-19] MEDS: DIVALPROEX 250 MG TABLET.DR PO SCH (08:55)
[2018-09-19] MEDS: FAMOTIDINE 20 MG TAB PO SCH (08:55)
[2018-09-19] MEDS: FLUoxetine HCL 20 MG CAP PO SCH (08:56)
[2018-09-19] MEDS: PREGABALIN 100 MG CAP PO SCH (08:56)
[2018-09-19] MEDS: QUEtiapine 50 MG TAB PO SCH (08:57)
[2018-09-19] MEDS: NICOTINE 14MG/24HR PATCH TRANSDERM SCH (08:57)
[2018-09-19 09:02] LABS: HCT 34.9 % (39.0-53.0); HGB 11.6 gm/dL (13.0-17.5); MCH 30.4 pg (25.0-35.0); MCHC 33.3 g/dL (31.0-37.0); MCV 91.2 fL (80.0-100.0); Mean Platelet Volume 6.6; Platelet Count 159 k/uL (150-450); RBC 3.82 m/uL (4.30-5.90); RDW 14.3 % (11.5-15.5); WBC 4.5 k/uL (3.8-10.6)
[2018-09-19] MEDS: HYDROcodone/APAP 5-325MG 1 EACH TAB PO PRN ×2 (10:18→16:42)
--- NOTE | 2018-09-19 11:30 | P.PN ---
Subjective Progress Note Date: 09/19/18 Principal diagnosis: Medical management status post hardware removal in the right lower extremity Patient was seen and examined. No acute events overnight. Patient denies any nausea or vomiting. No fever or chills. He denies any chest pain, shortness of breath or palpitations. Understanding that he will require long-term IV antibiotics, states that he has received this in the past. Looking for to going back to [place]. Objective - Vital Signs Vital signs: Vital Signs Temp 97.8 F 09/19/18 07:00 Pulse 75 09/19/18 07:00 Resp 16 09/19/18 07:00 BP 112/55 09/19/18 07:00 Pulse Ox 90 L 09/19/18 07:00 Intake & Output 09/18/18 09/19/18 09/19/18 18:59 06:59 18:59 Output Total 1250 Balance -1250 Output: Urine 1250 Other: # Voids 4 2 # Bowel Movements 0 - Exam General: [non toxic], [no distress], [appears at stated age] Derm: [warm], [dry] Head: [atraumatic], [normocephalic], [symmetric] Eyes: [EOMI], [no lid lag], [anicteric sclera] Mouth: [no lip lesion], [mucus membranes moist] Cardiovascular: [S1S2 reg], [no murmur] Lungs: [CTA bilateral], [no rhonchi, no rales] , [no accessory muscle use] Abdominal: [soft], [ nontender to palpation], [no guarding], [no appreciable organomegaly] Ext: [Dressing over the right leg wound VAC in place], [right lower extremity edema], [no contractures], [left lower extremity dropfoot] Neuro: [no focal neuro deficits] Psych: [Alert], [oriented], [appropriate affect] - Labs CBC & Chem 7: 09/19/18 08:02 09/18/18 08:04 Labs: Abnormal Lab Results - Last 24 Hours (Table) 09/19/18 Range/Units 08:02 RBC 3.82 L (4.30-5.90) m/uL Hgb 11.6 L (13.0-17.5) gm/dL Hct 34.9 L (39.0-53.0) % Microbiology - Last 24 Hours (Table) 09/17/18 08:46 Gram Stain - Preliminary Ankle - Right Tissue Culture - Preliminary Presumptive Staph aureus 09/17/18 08:46 Gram Stain - Preliminary Ankle - Right Wound Culture - Preliminary 09/17/18 09:29 Gram Stain - Preliminary Ankle - Right Tissue Culture - Preliminary Assessment and Plan Assessment: Assessment and Plan Postoperative anemia Hypertension History of stroke with left-sided residual weakness History of DVT provoked by surgery status post IVC filter History of seizures History of schizophrenia and depression COPD not an acute exacerbation Infected hardware in the right lower extremity status post removal postop day #2 Hemoglobin down from 13.6-11.6 this morning, expected. Wound VAC with minimal drainage. Transfuse if hemoglobin less than 7. Daily CBC. BP 112/55. Continue lisinopril. Monitor vitals, adjust medications as necessary. Continue Plavix and Lipitor. Follow PT and OT recommendations. Plans for [facility]. DVT prophylaxis with heparin 5000 units subcutaneously 3 times a day. Continue Depakote, Lyrica. Continue Seroquel, Prozac. Albuterol neb as needed for shortness of breath and wheezing. Plans for PICC line today. ID on consult for IV antibiotic choice, likely vanco mycin until cultures are back. Wound cultures showing presumptive staph aureus. Pain management with Tylenol, [place], Dilaudid. Weightbearing as per orthopedic recommendations. Follow PT and OT recommendations. Follow orthopedic recommendations. Follow ID recommendations. Patient for PICC line today. ID on board for choice of IV antibiotics. Patient for DC to [facility] per Ortho plans.
[2018-09-19] MEDS ORDERED: LIDOCAINE 1% INJ 10MG/ML (20 ML MDV) ONE (13:01)
[2018-09-19] MEDS ORDERED: LIDOCAINE 1% INJ 10MG/ML (20 ML MDV) SQ ONE (13:12)
[2018-09-19 14:47] VITALS: BP 109/66; PULSE 70; TEMP 98.2
--- NOTE | 2018-09-19 15:54 | P.DS ---
Providers Date of admission: 09/17/18 10:16 Attending physician: Eligio Smith Consults: 09/17/18 10:16 Consult Physician Routine Consulting Provider: Joaquin Castillo Consult Reason/Comments: Wound management and antibiotic recommendations. Do you want consulting provider notified?: Yes 09/17/18 10:25 Consult Physician Routine Consulting Provider: Claudio Rooney Consult Reason/Comments: Medical management, anti-coagulation Do you want consulting provider notified?: Yes Primary care physician: Agustín Thomas MD Hospital Course: This patient is a 63-year-old male with past medical history of schizophrenia, DVT status post IVC filter currently on Plavix, hypertension, COPD, and seizures that presented to [facility] on 09/17/18 for hardware removal of the right ankle. The patient originally sustained an ankle fracture years ago that operative fixation by another doctor. Patient was seen by Dr. Smith for posttraumatic arthritis of the left ankle and a chronic wound over the lateral i ncision. The decision was made to remove the hardware to completely eradicate the infection, therefore allowing the draining wound to heal. Patient underwent a deep hardware removal of right ankle and application of a wound VAC on 09/17/[address] Smith. The procedure is performed without complication or sequelae. The patient is doing well postoperatively. Vital signs are stable on postop day #2. The patient is examined bedside this morning. He states he is experiencing minimal pain in the right ankle. He states that he has been trying to not put weight on the ankle since yesterday. He has the CAM boot today. He denies any new orthopedic complaints today. He denies fevers, chills, nausea, vomiting. On examination, the patient is sitting up in bed in no acute distress. Patient is alert and orientated x3. On inspection of the right lower extremity, there is wound vac in place, covered by an TARAS wrap. TARAS wrap is clean, dry, intact. Taras wrap was taken down and reveals a clean appearing wound vac in place. The wound vac is taken down and reveals a incision over the lateral aspect of the ankle with intact sutures. There is no surrounding erythema, warmth, or fluctuance. Patient is able to wiggle right toes without issue. The toes are warm and well-perfused with brisk capillary refill. Sensation is intact to light touch of the dorsal and plantar foot, as well as first dorsal webspace. The left calf is soft and non-tender to palpation. Wound vac was taken down today. New dry, nonadherent dressing was applied this morning. Additional wound care recommendations per infectious disease. PICC line placed today, per infectious disease. Antibiotic recommendations per infectious disease. Will continue to follow cultures, showing staph aureus. The patient is discharged to [facility] pending medical and infectious disease clearance today. Please refer to the [facility] for accurate list of medications. Patient Condition at Discharge: Fair Plan - Discharge Summary Discharge Rx Participant: No New Discharge Prescriptions: New Docusate [Colace] 100 mg PO BID #60 capsule Hydrocodone/Acetaminophen [[place] 5-325] 1 tab PO Q6HR PRN #28 tab PRN Reason: Pain Vancomycin 1,500 mg IVPB Q24HR 42 Days bag Continue Lisinopril [Zestril] 10 mg PO DAILY Clopidogrel [Plavix] 75 mg PO DAILY Atorvastatin [Lipitor] 10 mg PO DAILY Acetaminophen Tab [Tylenol] 650 mg PO Q6HR PRN tab PRN Reason: Fever And/ Or Pain Famotidine [Pepcid] 20 mg PO BID tab FLUoxetine HCL [PROzac] 40 mg PO DAILY cap Ipratropium Nebulized [Atrovent Nebulized 0.2 MG/ML] 0.5 mg INHALATION RT-QID nebu Nicotine 21Mg/24Hr Patch [Habitrol] 1 patch TRANSDERM HS patch QUEtiapine [SEROquel] 50 mg PO DAILY tab QUEtiapine [SEROquel] 100 mg PO HS tab Tamsulosin [Flomax] 0.4 mg PO PC-BRKFST cap.er.24h tiZANidine [Zanaflex] 6 mg PO TID PRN tab PRN Reason: Muscle Spasm Pregabalin [Lyrica] 100 mg PO BID Docusate [Colace] 100 mg PO DAILY PRN PRN Reason: Constipation Divalproex [Depakote] 250 mg PO BID Tiotropium 18 Mcg/Puff [Spiriva] 1 puff INHALATION RT-DAILY Discontinued Diclofenac Sodium [Voltaren Gel] 2 gram TOPICAL Q8H PRN PRN Reason: Pain Sulfamethox-Tmp 800-160Mg [Bactrim DS 800-160 mg] 1 tab PO Q12HR Discharge Medication List Atorvastatin [Lipitor] 10 mg PO DAILY 03/15/18 [History] Clopidogrel [Plavix] 75 mg PO DAILY 03/15/18 [History] Lisinopril [Zestril] 10 mg PO DAILY 03/15/18 [History] Acetaminophen Tab [Tylenol] 650 mg PO Q6HR PRN tab 03/18/18 [Rx] FLUoxetine HCL [PROzac] 40 mg PO DAILY cap 03/18/18 [Rx] Famotidine [Pepcid] 20 mg PO BID tab 03/18/18 [Rx] Ipratropium Nebulized [Atrovent Nebulized 0.2 MG/ML] 0.5 mg INHALATION RT-QID nebu 03/18/18 [Rx] Nicotine 21Mg/24Hr Patch [Habitrol] 1 patch TRANSDERM HS patch 03/18/18 [Rx] QUEtiapine [SEROquel] 50 mg PO DAILY tab 03/18/18 [Rx] QUEtiapine [SEROquel] 100 mg PO HS tab 03/18/18 [Rx] Tamsulosin [Flomax] 0.4 mg PO PC-BRKFST cap.er.24h 03/18/18 [Rx] tiZANidine [Zanaflex] 6 mg PO TID PRN tab 03/18/18 [Rx] Divalproex [Depakote] 250 mg PO BID 09/15/18 [History] Docusate [Colace] 100 mg PO DAILY PRN 09/15/18 [History] Pregabalin [Lyrica] 100 mg PO BID 09/15/18 [History] Tiotropium 18 Mcg/Puff [Spiriva] 1 puff INHALATION RT-DAILY 09/17/18 [History] Docusate [Colace] 100 mg PO BID #60 capsule 09/19/18 [Rx] Hydrocodone/Acetaminophen [[place] 5-325] 1 tab PO Q6HR PRN #28 tab 09/19/18 [Rx] Vancomycin 1,500 mg IVPB Q24HR 42 Days bag 09/19/18 [Rx] Follow up Appointment(s)/Referral(s): Joaquin Castillo MD [STAFF PHYSICIAN] - 1 Week Eligio Smith MD [Medical Doctor] - 1 Week Ambulatory/Diagnostic Orders: Basic Metabolic Panel [LAB.AMB] Location: None Selected Complete Blood Count w/diff [LAB.AMB] Location: None Selected Miscellaneous Lab Order [LAB.AMB] Location: None Selected Activity/Diet/Wound Care/Special Instructions: -Strict non-weight bearing on your operative leg. Wear CAM boot at all times. Daily dressing changes, additional wound care recommendations per infectious disease team. -Use crutches, knee scooter, or a walker to ambulate after surgery. -Elevate and ice operative leg to help reduce swelling and control pain. -Take pain medications as prescribed. Take Colace as a stool softener. Anti- coagulation recommendations per internal medicine team. Antibiotics per infectious disease team. -Follow-up appointment with Dr. Smith in the office in 1 week. -Call the office with any questions or concerns, Discharge Disposition: TRANSFER TO SNF/ECF
--- NOTE | 2018-09-19 17:02 | P.PN ---
Subjective Progress Note Date: 09/19/18 63-year-old male who has multiple medical troubles that includes arterial disease with a stroke with resultant left-sided weakness, schizophrenia, chronic tobacco use, and history of significant trauma to the right leg. Patient relates that he was standing in line after [employer] at the local [employer] in [place] to take some merchandise back to the store. He apparently had the sudden collapse of his right leg. He was taken to a local hospital and eventually underwent surgical intervention. The patient relates that last multiple years is no draining sinus tract. He did see the surgeon but apparently never had the hardware removed. He moved to [place] to be closer to his daughter who is his guardian. With the chronic open draining ulceration to the ankle he was evaluated by foot and ankle surgeon, with evidence of a grossly infected hardware was taken to the operating room for removal of the infected hardware. It with this the infectious diseases consultation was requested. Patient also has a history of abdominal hernia repair which apparently had difficulties with mesh which is been removed but continues to have some drainage to the abdominal site. He site fevers chills rigors or sweats. He does have foot drop to the left and wears a special brace and is concerned with the boot to the right after surgery about his ambulation. 09/19/2018 patient is feeling somewhat better at this time. No other new complaints are occurring. Looks forward to transferring back to the extended care facility. Objective - Vital Signs Vital signs: Vital Signs Temp 98.2 F 09/19/18 14:46 Pulse 70 09/19/18 14:46 Resp 16 09/19/18 14:46 BP 109/66 09/19/18 14:46 Pulse Ox 92 L 09/19/18 14:46 Intake & Output 09/18/18 09/19/18 09/19/18 18:59 06:59 18:59 Output Total 1250 Balance -1250 Output: Urine 1250 Other: # Voids 4 2 4 # Bowel Movements 0 0 - Exam 63-year-old male HEENT: Anicteric conjunctiva are pink and moist nasal mucosa grossly intact without significant lesions, there is no thrush. Neck: The neck is supple without significant lymphadenopathy or thyromegaly. Lungs: Good bilateral air entry without significant crackles or wheezing. There is no significant bronchial sounds. There is no egophony or dullness. Heart: Regular rate and rhythm with an audible S1-S2, no S3 no S4. There is no significant murmur click or rub, PMI was nondisplaced. Abdomen: Positive bowel sounds soft and nontender without palpable masses or organomegaly. There was no guarding or rebound. Extremities: The upper extremities have excellent pulses they are symmetric, no significant petechiae or telangiectasia. No splinter hemorrhages were noted. The lower extremities are free from significant edema. The peripheral pulses were 2+ and symmetric.the wound VAC is removed and there is no evidence of any significant purulence or drainage at this point in time. Neuro: Awake alert oriented to person place and time. Left-sided weakness from his stroke with spasticity to the upper extremity less so to the left lower ex tremity Abdominal wall is evidence of the surgical intervention with a small area of exposed granulation tissue - Labs CBC & Chem 7: 09/19/18 08:02 09/18/18 08:04 Labs: Abnormal Lab Results - Last 24 Hours (Table) 09/19/18 Range/Units 08:02 RBC 3.82 L (4.30-5.90) m/uL Hgb 11.6 L (13.0-17.5) gm/dL Hct 34.9 L (39.0-53.0) % Microbiology - Last 24 Hours (Table) 09/17/18 08:46 Anaerobic Culture - Preliminary Ankle - Right 09/17/18 09:29 Anaerobic Culture - Preliminary Ankle - Right 09/17/18 08:46 Anaerobic Culture - Preliminary Ankle - Right 09/17/18 08:46 Gram Stain - Preliminary Ankle - Right Wound Culture - Preliminary Presumptive Staph aureus 09/17/18 08:46 Gram Stain - Preliminary Ankle - Right Tissue Culture - Preliminary Presumptive Staph aureus Laboratory Results WBC 4.5 k/uL (3.8-10.6) 09/19/18 08:02 RBC 3.82 m/uL (4.30-5.90) L 09/19/18 08:02 Hgb 11.6 gm/dL (13.0-17.5) L 09/19/18 08:02 Hct 34.9 % (39.0-53.0) L 09/19/18 08:02 MCV 91.2 fL (80.0-100.0) 09/19/18 08:02 MCH 30.4 pg (25.0-35.0) 09/19/18 08:02 MCHC 33.3 g/dL (31.0-37.0) 09/19/18 08:02 RDW 14.3 % (11.5-15.5) 09/19/18 08:02 Plt Count 159 k/uL (150-450) 09/19/18 08:02 Neutrophils % 93 % 09/17/18 11:43 Lymphocytes % 5 % 09/17/18 11:43 Monocytes % 1 % 09/17/18 11:43 Eosinophils % 1 % 09/17/18 11:43 Basophils % 0 % 09/17/18 11:43 Neutrophils # 8.3 k/uL (1.3-7.7) H 09/17/18 11:43 Lymphocytes # 0.4 k/uL (1.0-4.8) L 09/17/18 11:43 Monocytes # 0.1 k/uL (0-1.0) 09/17/18 11:43 Eosinophils # 0.1 k/uL (0-0.7) 09/17/18 11:43 Basophils # 0.0 k/uL (0-0.2) 09/17/18 11:43 Sodium 141 mmol/L (137-145) 09/18/18 08:04 Potassium 4.6 mmol/L (3.5-5.1) 09/18/18 08:04 Chloride 103 mmol/L (98-107) 09/18/18 08:04 Carbon Dioxide 27 mmol/L (22-30) 09/18/18 08:04 Anion Gap 11 mmol/L 09/18/18 08:04 BUN 15 mg/dL (9-20) 09/18/18 08:04 Creatinine 0.60 mg/dL (0.66-1.25) L 09/18/18 08:04 Est GFR (CKD-EPI)AfAm >90 (>60 ml/min/1.73 sqM) 09/18/18 08:04 Est GFR (CKD-EPI)NonAf >90 (>60 ml/min/1.73 sqM) 09/18/18 08:04 Glucose 91 mg/dL (74-99) 09/18/18 08:04 Calcium 9.4 mg/dL (8.4-10.2) 09/18/18 08:04 Total Bilirubin 0.5 mg/dL (0.2-1.3) 09/18/18 08:04 AST 37 U/L (17-59) 09/18/18 08:04 ALT 29 U/L (21-72) 09/18/18 08:04 Alkaline Phosphatase 65 U/L (38-126) 09/18/18 08:04 Total Protein 7.2 g/dL (6.3-8.2) 09/18/18 08:04 Albumin 4.6 g/dL (3.5-5.0) 09/18/18 08:04 Laboratory Results WBC 4.5 k/uL (3.8-10.6) 09/19/18 08:02 RBC 3.82 m/uL (4.30-5.90) L 09/19/18 08:02 Hgb 11.6 gm/dL (13.0-17.5) L 09/19/18 08:02 Hct 34.9 % (39.0-53.0) L 09/19/18 08:02 MCV 91.2 fL (80.0-100.0) 09/19/18 08:02 MCH 30.4 pg (25.0-35.0) 09/19/18 08:02 MCHC 33.3 g/dL (31.0-37.0) 09/19/18 08:02 RDW 14.3 % (11.5-15.5) 09/19/18 08:02 Plt Count 159 k/uL (150-450) 09/19/18 08:02 Neutrophils % 93 % 09/17/18 11:43 Lymphocytes % 5 % 09/17/18 11:43 Monocytes % 1 % 09/17/18 11:43 Eosinophils % 1 % 09/17/18 11:43 Basophils % 0 % 09/17/18 11:43 Neutrophils # 8.3 k/uL (1.3-7.7) H 09/17/18 11:43 Lymphocytes # 0.4 k/uL (1.0-4.8) L 09/17/18 11:43 Monocytes # 0.1 k/uL (0-1.0) 09/17/18 11:43 Eosinophils # 0.1 k/uL (0-0.7) 09/17/18 11:43 Basophils # 0.0 k/uL (0-0.2) 09/17/18 11:43 Sodium 141 mmol/L (137-145) 09/18/18 08:04 Potassium 4.6 mmol/L (3.5-5.1) 09/18/18 08:04 Chloride 103 mmol/L (98-107) 09/18/18 08:04 Carbon Dioxide 27 mmol/L (22-30) 09/18/18 08:04 Anion Gap 11 mmol/L 09/18/18 08:04 BUN 15 mg/dL (9-20) 09/18/18 08:04 Creatinine 0.60 mg/dL (0.66-1.25) L 09/18/18 08:04 Est GFR (CKD-EPI)AfAm >90 (>60 ml/min/1.73 sqM) 09/18/18 08:04 Est GFR (CKD-EPI)NonAf >90 (>60 ml/min/1.73 sqM) 09/18/18 08:04 Glucose 91 mg/dL (74-99) 09/18/18 08:04 Calcium 9.4 mg/dL (8.4-10.2) 09/18/18 08:04 Total Bilirubin 0.5 mg/dL (0.2-1.3) 09/18/18 08:04 AST 37 U/L (17-59) 09/18/18 08:04 ALT 29 U/L (21-72) 09/18/18 08:04 Alkaline Phosphatase 65 U/L (38-126) 09/18/18 08:04 Total Protein 7.2 g/dL (6.3-8.2) 09/18/18 08:04 Albumin 4.6 g/dL (3.5-5.0) 09/18/18 08:04 Microbiology 09/17/18 08:46 Ankle - Right Anaerobic Culture - Preliminary 09/17/18 09:29 Ankle - Right Anaerobic Culture - Preliminary 09/17/18 08:46 Ankle - Right Anaerobic Culture - Preliminary 09/17/18 08:46 Ankle - Right Gram Stain - Preliminary 09/17/18 08:46 Ankle - Right Wound Culture - Preliminary Presumptive Staph aureus 09/17/18 08:46 Ankle - Right Gram Stain - Preliminary 09/17/18 08:46 Ankle - Right Tissue Culture - Preliminary Presumptive Staph aureus 09/17/18 09:29 Ankle - Right Gram Stain - Preliminary 09/17/18 09:29 Ankle - Right Tissue Culture - Preliminary Assessment and Plan (1) Status post hardware removal Current Visit: Yes Status: Acute Code(s): Z98.890 - OTHER SPECIFIED POSTPROCEDURAL STATES SNOMED Code(s): 641827619 (2) Wound of right ankle Narrative/Plan: 63-year-old male who has multiple medical troubles that includes schizophrenia, history of stroke with left-sided weakness and spasticity of the upper extremity presents with a nonhealing ulceration to the right ankle. He's been having a nonhealing sinus track for some time after his repair of his right ankle. Apparently the hardware was was to be removed before he left [place] but never occurred. Upon his arrival here he is now been seen by orthopedics and this hardware specimen removed and bone has been debrided. Cultures are pending. Blood cultures are in process vancomycin therapy will be most prudent while CULTURES are pending. As far as the site currently wound VAC is in place. Once initial wound VAC is removed will then hopefully be able to direct course of wound care for discharge. Patient does have a small umbilicus ulceration for which opticell silver will be applied. May be changed every Saturday. Given that the hardware has been removed, there was evidence of active infection will likely need a 6 week course of antibiotic therapy related to the infected hardware. We'll need IV access. 09/19/2018 patient is feeling better. The wound VAC is removed and dressings have been applied. Staphylococcal infection as noted in vancomycin therapy is being initiated this point in time. He will go back to extended care facility now that IV access placed and completed a six-week course of antibiotic therapy. We'll follow cultures May consider alteration of the drug itself. The dosing of vancomycin as discussed with the pharmacy kinetic team and 1500 mg twice a day is advised at this point in time. He found the office in 2 weeks Current Visit: Yes Status: Acute Code(s): S91.001A - UNSPECIFIED OPEN WOUND, RIGHT ANKLE, INITIAL ENCOUNTER SNOMED Code(s): 599215918 (3) Abdominal wall skin ulcer Current Visit: Yes Status: Acute Code(s): L98.499 - NON-PRESSURE CHRONIC ULCER OF SKIN OF SITES W UNSP SEVERITY SNOMED Code(s): 818864469
[2018-09-20] MEDS ORDERED: VANCOMYCIN TROUGH DUE 1 EACH MISC MISCELLANE ONE (08:00)
--- NOTE | 2018-09-29 08:58 | IR ---
PICC LINE PLACEMENT: HISTORY: Infection requiring long-term antibiotic therapy PROCEDURE: Ultrasound and fluoroscopic guidance of PICC line placement. COMPLICATIONS: None ANESTHESIA: 1. 1% Lidocaine locally. FINDINGS/TECHNIQUE: The procedure was explained to the patient. The risks, complications, benefits and alternatives were discussed and any questions were answered. Informed consent was obtained. The patient was placed supine on the fluoroscopic table and prepped and draped in the usual sterile fash ion. Utilizing a 21 gauge needle and sonographic and fluoroscopic guidance, access in the left ceph alic vein was achieved and there is placement of a 0.018 guidewire. The vein is patent. A 4-F sheat h was placed over the guidewire. The guidewire and dilator were removed and a 4-F. PICC line was estela ba through the sheath with the tip at the level of the SVC. The sheath was removed, the catheter wa s flushed and sutured into position. The patient was stable throughout the procedure and remained st able upon discharge from the Department of Radiology. The vein puncture was patent under ultrasound. A helton scale image was obtained to document patency of the vein punctured. All elements of the maximal barrier technique were utilized. FLUOROSCOPY TIME: 0.1 minutes and one image submitted IMPRESSION: Successful PICC line placement under ultrasound and fluoroscopic guidance.
== END 2018-09-19 18:15 | disposition home or self-care (01) ==
LOC: OR 08:00 → EDSTATUS 09:00 → 2ORMAIN 10:08 → 4SSUR 10:08 → 2ORMAIN 10:08 → OBSVTOIN 10:16 → INTOOBSV 10:16 → UNDODISIN 09-19 18:15 → OR 09-19 18:15
PROVIDERS: ATTEND Orthopaedic Surgery
DX: T84.624A Infection and inflammatory reaction due to internal fixation device of right fibula, initial encounter (principal); I69.354 Hemiplegia and hemiparesis following cerebral infarction affecting left non-dominant side; L97.319 Non-pressure chronic ulcer of right ankle with unspecified severity; T81.89XA Other complications of procedures, not elsewhere classified, initial encounter; F20.9 Schizophrenia, unspecified; M12.571 Traumatic arthropathy, right ankle and foot; F32.9 Major depressive disorder, single episode, unspecified; I10 Essential (primary) hypertension; G40.909 Epilepsy, unspecified, not intractable, without status epilepticus; J44.9 Chronic obstructive pulmonary disease, unspecified; F17.210 Nicotine dependence, cigarettes, uncomplicated; F10.11 Alcohol abuse, in remission; M21.372 Foot drop, left foot; F43.10 Post-traumatic stress disorder, unspecified; L98.499 Non-pressure chronic ulcer of skin of other sites with unspecified severity; D50.0 Iron deficiency anemia secondary to blood loss (chronic); E78.5 Hyperlipidemia, unspecified; M19.90 Unspecified osteoarthritis, unspecified site; B95.8 Unspecified staphylococcus as the cause of diseases classified elsewhere; Z59.9 Problem related to housing and economic circumstances, unspecified; Z79.899 Other long term (current) drug therapy; Z79.02 Long term (current) use of antithrombotics/antiplatelets; Z95.828 Presence of other vascular implants and grafts; Z86.718 Personal history of other venous thrombosis and embolism; Z90.49 Acquired absence of other specified parts of digestive tract; Z88.5 Allergy status to narcotic agent; Z82.49 Family history of ischemic heart disease and other diseases of the circulatory system
CPT/HCPCS: 20680; 36569; 94640 ×3; 97530; 97162; 97535; 97166; 36573; 80053; 85025; 85027 ×2; 87070; 87205; 87075; 87077; 87186; 73600; C1751; C1769; S4990; J2250; J3370; J0360; J1644 ×2; J1100; J2405 ×2; J2001 ×2; J3010; J1170 ×3; J2704; J0690

== ENCOUNTER → 2019-08-14 | Outpatient (CLI) | payer MEDICARE, OTHER ==
--- NOTE | 2019-08-14 10:20 | FL ---
EXAMINATION TYPE: FL fistulogram DATE OF EXAM: 08/14/2019 COMPARISON: 06/18/2018 CT HISTORY: Umbilical hernia repair one year ago with slow healing. Subsequent absence formation with dr castellanos 1 month ago and continued purulent discharge. TECHNIQUE/FINDINGS/IMPRESSION: Fluoroscopic guidance was utilized with 28 seconds of fluoroscopy used and 3 fluoroscopic images saved during cannulation of the ventral abdominal defect with a pediatric catheter after washing area with Betadine. Approximately 12 cc of [id number] was injected into the de epest pocket obtainable with linear accumulation in the abdominal wall defect. No extension was seen despite 2 trials into the abdominal cavity. No connection with bowel seen.
== END | disposition home or self-care (01) ==
LOC: RADUSWWP 08:34
PROVIDERS: ATTEND Physician Assistant
DX: T81.31XD Disruption of external operation (surgical) wound, not elsewhere classified, subsequent encounter (principal)
CPT/HCPCS: 20501; 76080; Q9967